=== PATIENT | female | born 1940 | race Caucasian/White ===

== ENCOUNTER → 2016-10-12 00:01 | Outpatient (CLI) | payer MEDICARE, BC, SELFPAY ==
--- NOTE | 2016-10-13 | IMM_PTH ---
PATIENT: VIKRAM BUSTILLO [place]: [facility] [place][id number] AGE/SX: 84/F ROOM: RE10/12/[address]: Dr. Luca Lawrence MD : 1940 BED: DIS: SPEC #: [id number] RECD: 10/14/16 11:09 STATUS: VANDANA REMckenzie #: [id number] COLT: 10/13/16 00:[address]: Luca Lawrence DEPT: IMMUNOHISTOCHEMISTRY RECD BY: Billie Vieira ENTERED: 10/14/16 11:10 SP TYPE: IMMUNO OTHR DR: Dr. Leonardo Bear III, MD Tissues: B - Stomach, NOS Procedures: H Pylori (initial) PHYSICIAN & INSTITUTION [place] [id number] SPECIMEN INFORMATION: Tissue Source: B - Gastric biopsy Clinical Info: Anemia, heme-positive stool Specimen Number: [id number] CPT code: 35650 METHODOLOGY: Deparaffinized sections of prefer/formalin-fixed tissue or PAP/DQ stained slides are incubated with monoclonal/polyclonal antibodies/oligonucleotide probes. Localization is made via biotin free immunoperoxidase method. Appropriate controls are performed and reacted as expected. Results on target cell population are indicated in the following table: RESULTS: ANTIBODY / CLONE RESULT Block B H Pylori (polyclonal) negative These tests were developed and their performance characteristics determined by [facility]. They may not have been cleared or approved by the U.S. Food and Drug Administration. The FDA has determined that such clearance or approval is not necessary. INTERPRETATION: B. Gastric biopsy: Negative for Helicobacter pylori organisms. SJ:ricki 10/15/16
--- NOTE | 2016-10-13 | GASB_PTH ---
PATIENT: VIKRAM BUSTILLO LOC: [facility] [place] U#:[id number] AGE/SX: 84/F ROOM: RE10/12/[address]: Dr. Luca Lawrence MD : 1940 BED: DIS: SPEC #: [id number] RECD: 10/13/16 13:32 STATUS: VANDANA YESENIA #: [id number] COLT: 10/13/16 00:[address]: Luca Lawrence DEPT: SURGICAL PATHOLOGY RECD BY: Felton Mesa ENTERED: 10/13/16 14:19 SP TYPE: Gastric Bx OT DR: Dr. Leonardo Bear III, MD Tissues: A - Gastric mucous membrane B - Gastric mucous membrane Procedures: Special Stain Group I Surgery Specimen Level IV GMS Stain (control) HEADER OPERATION: EGD PRE-OP DIAGNOSIS: Anemia, heme-positive stool TISSUE SUBMITTED: A - GE junction biopsy, B - Gastric biopsy MICROSCOPIC DIAGNOSIS A. GE junction, biopsy: Fragments of squamous mucosa with focal ulceration, associated acute inflammation and fibrinopurulent exudation. Focal changes suggestive of viral cytopathic effects. Special stain for fungi is negative for organisms; matched control is appropriate. B. Gastric biopsy: Mild gastritis and mucosal congestion. SJ:ricki 10/14/16 COMMENT B. The results of immunohistochemistry for Helicobacter pylori will be reported separately ([id number]). Correlation with clinical, endoscopic findings and appropriate follow up are necessary. MICROSCOPIC DESCRIPTION Slides are reviewed. B. The specimen shows fragments of gastric mucosa with chronic inflammatory cell infiltrates in the lamina propria consisting of lymphocytes and plasma cells, consistent with mild chronic gastritis. Focal mucosal congestion is also noted. GROSS DESCRIPTION A - Received in fixative is one container labeled with the patient's name and designated GE junction biopsy. The specimen consists of multiple irregular fragments of light mccain soft tissue that in aggregate measure 0.5 x 0.5 x 0.1 cm. The specimen is totally submitted in one cassette. B - Received in fixative is one container labeled with the patient's name and designated gastric biopsy. The specimen consists of one irregular fragment of light mccain soft tissue that measures 0.3 x 0.2 x 0.1 cm. The specimen is totally submitted in one cassette. / LARA:ricki 10/13/16 TC:2 CPT: 34090 x2, 40161
[2016-10-13 10:53] VITALS: BP 164/46; PULSE 52; RESP 16; TEMP 36.3; O2SAT 98; BMI 27.2
[2016-10-13 12:01] VITALS: BP 164/46; BP 189/85; PULSE 52; RESP 20; TEMP 37.1; O2SAT 99
[2016-10-13 12:05] VITALS: BP 164/46; BP 186/51; PULSE 53; RESP 18; O2SAT 99
[2016-10-13 12:10] VITALS: BP 164/46; BP 193/45; PULSE 52; RESP 18; O2SAT 100
[2016-10-13 12:20] VITALS: BP 164/46; BP 190/46; PULSE 53; RESP 18; TEMP 36.5; O2SAT 99
[2016-10-13 16:16] LABS: Bedside Glucose 98 mg/dL (70-110)
--- OUTSIDE RECORDS SUMMARY | 2017-07-26 19:05 | XMS RPT_ITS | Clinical Summary ---
:1940 Author Organization [facility]ly [facility] Address [address] [place] [address] [place] [address] Phone Care Team Providers Name Role Phone WSANurse Unavailable Unavailable Conditions or Problems No information available. Medications No information available. Medications Administered No information available. Allergies, Adverse Reactions, Alerts No information available. Results Date Name Value Unit Range Flag Description Lab Report: Bedside Glucose GLUCOSEPOC 162 mg/dL 70-110 H glucose, point of care Plan of Care No information available. Procedures No information available. Vital Signs No information available.
--- OUTSIDE RECORDS SUMMARY | 2017-07-26 19:05 | XMS RPT_ITS | Clinical Summary ---
:1940 Author Organization [facility] Address [address] [place] [address] [place] [address] Phone Care Team Providers Name Role Phone WSANurse Unavailable Unavailable Conditions or Problems No information available. Medications No information available. Medications Administered No information available. Allergies, Adverse Reactions, Alerts No information available. Results Date Name Value Unit Range Flag Description Lab Report: CBC W/Diff, Automated LYMPHCT AUTO 1.43 X10 3/UL 10*3/mm3 0.83-4.51 lymphocyte count, blood, automated ANC 3.5 X10 3/UL 10*3/mm3 2.0-7.7 neutrophil count, blood IMM GRANU % 0.200 % 0.0-0.9 immature granulocytes, percentage of total cells, blood BASOPHIL % 1.7 % 0-1 H basophils as percent of blood leukocytes EOSINOPHIL % 8.7 % 0-5 H eosinophils as percent of blood leukocytes MONOCYTE % 7.7 % 0-10 monocytes as percent of blood leukocytes LYMPHS % 23.9 % 19-41 lymphocytes as percent of blood leukocytes PMN % 57.8 % 47-70 neutrophils as percent of blood leukocytes MPV 11.0 fL 6.2-12.0 mean platelet volume PLATELETS 182 10*3/mm3 150-450 platelet count RDW-SD 50.0 fL 35.1-43.9 H red blood cell distribution width, size density RDW 15.3 % 11.6-14.6 H red blood cell distribution width MCHC RBC 32.7 G/GL g/dL 32-36 mean corpuscular hemoglobin concentration, RBC MCH 30.4 pg 27.0-32.0 mean corpuscular hemoglobin, RBC MCV 92.7 fL 81-99 mean corpuscular volume, RBC HCT 34.2 % 37-47 L hematocrit, blood HGB 11.2 g/dL 12.0-15.0 L hemoglobin, blood RBC M/UL 3.69 10*6/uL 4.2-5.4 L red blood count WBC BLOOD 6.0 10*9/L 4.4-11.0 leukocyte (white blood cells) count, blood Lab Report: BNP,B-Type NATRIURETIC PEPTIDE BNP PG/ML 668.6 pg/mL 0-100 H B-type natriuretic peptide Lab Report: Comprehensive Metabolic Profil ANION GAP 6 5-15 anion gap, serum CO2 24.0 mmol/L 21.0-32.0 carbon dioxide, venous blood CHLORIDE 104 mmol/L 98-107 chloride, serum POTASSIUM 4.7 mmol/L 3.5-5.1 potassium, serum SODIUM 134 mmol/L 136-145 L sodium, serum BILI TOTAL 0.50 mg/dL 0.20-1.00 bilirubin, serum, total SGPT (ALT) 24 U/L 12-78 alanine aminotransferase (SGPT), serum ALK PHOS 181 U/L 45-117 H alkaline phosphatase, serum SGOT (AST) 21 U/L 15-37 aspartate aminotransferase (SGOT), serum CALCIUM 8.5 mg/dL 8.5-10.1 calcium, serum A/G RATIO 0.5 RATIO 0.9-2.4 L albumin/globulin ratio, serum GLOBULIN TOT 3.4 g/dL 2.3-3.5 globulins, serum, total ALBUMIN 1.8 g/dL 3.4-5.0 L albumin, serum PROTEIN, TOT 5.2 g/dL 6.4-8.2 L protein, total, serum BUN/CREAT 31.4 RATIO 10-20 H urea nitrogen/creatinine ratio, serum CCVCREABSA 32.08 mL/min calculated corrected value of creatinine clearance with body surface area GFRAA 57 mL/min >60 L Glomerular Filtration rate GFR EST 47 mL/min >60 L estimated glomerular filtration rate CREATININE 1.18 mg/dL 0.55-1.02 H creatinine, serum BUN 37 mg/dL 7-18 H urea nitrogen, blood GLUCOSE SER 141 mg/dL 70-110 H blood glucose Lab Report: Bedside Glucose GLUCOSEPOC 130 mg/dL 70-110 H glucose, point of care Plan of Care No information available. Procedures No information available. Vital Signs No information available.
--- OUTSIDE RECORDS SUMMARY | 2017-07-26 19:05 | XMS RPT_ITS | Clinical Summary ---
:1940 Author Organization [facility] Address [address] [place] [address] [place] [address] Phone Care Team Providers Name Role Phone [...]
== END | disposition skilled nursing facility (03) ==
PROVIDERS: Family Provider Family Medicine; PCP Family Medicine; Visit Provider Surgery
CPT/HCPCS: 43239; 45378; 82962; 88305; 88312; 88342; J7120

== ENCOUNTER 2019-11-02 15:50 | Emergency (ER) | payer MEDICARE, SELFPAY ==
[2019-11-02 15:50] VITALS: BP 155/58; PULSE 81; RESP 16; TEMP 37.1; O2SAT 97; BMI 22.2
--- NOTE | 2019-11-02 16:03 | ED.VIS.INJ ---
History of Present Illness Chief Complaint: Fall Informant: Patient, Family Onset: Today Mechanism/Context: Blunt Injury, Fall Quality of Pain: Aching Current Severity: /10 Maximum Severity: 8/10 Worsened by: Examination of wound Relieved by: Nothing Associated Symptoms: Weakness - Chronic, Inability to ambulate - Had difficulty ambulating for the past 3 years.. Negative for: Parasthesias, Loss of consciousness, Amnesia Narrative: Patient is a 78-year-old woman who was being assisted to the commode. She slept. She and her caregiver fell over the walker. She sustained a large laceration anterior mid left leg. Tetanus is uncertain. Will contact her PCP to determine when she received her last tetanus shot. She is not able to ambulate without assistance. She not able to transferred with out assistance. He denies any hip, knee, ankle or foot pain. 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 Status: Acute (2) History of bilateral knee replacement Status: Acute (3) History of esophagogastroduodenoscopy (EGD) Status: Acute Comment: 10/13/2016, 10/03/2009, 04/09/2013 (4) Hx of cataract surgery Status: Acute Comment: Left eye ( complex) 12/2012 (5) Hx of colonoscopy Status: Acute Comment: 10/13/2016, 10/03/2009, 04/09/2013, 01/03/2008, 07/15/2007 (6) Allergic rhinitis Status: Chronic (7) Anemia Status: Chronic Comment: acute on chronic anemia (8) Asthma Status: Chronic (9) Chronic renal failure, stage 3 (moderate) Status: Chronic (10) HLD (hyperlipidemia) Status: Chronic (11) Seizure disorder Status: Chronic Past Medical History - Allergies and Home Meds Allergies/Adverse Reactions: Allergies almond oil Allergy (Verified 11/02/19 15:53) Mark Primary Care Physician: Leonardo Bear III, MD [Primary Care Provider] - Prior records reviewed: Yes Surgical History: - - R hip fracture repair, Back Fusion, Endoscopies, BL TKR. Lives: With Family Smoking Status: Never smoker Alcohol: None Drugs: None - Family History Maternal Family History: Family History (Last Updated 05/25/18 @ 15:47 by Madai Kenyon) Father Myocardial infarction CVA (cerebral vascular accident) Diabetes Mother Hypertension Family History: Reports: No pertinent history Paternal Family History: Family History (Last Updated 08/26/17 @ 15:47 by Madai Kenyon) Father Myocardial infarction CVA (cerebral vascular accident) Diabetes Mother Hypertension Family History: Reports: No pertinent history Review of Systems General: Denies: Fever, Malaise Eyes: Denies: Visual changes - bilaterally, Blurred Vision - bilaterally ENT: Denies: Bilateral ear pain Cardiovascular: Denies: Chest pain Respiratory: Denies: Dyspnea Gastrointestinal: Denies: Abdominal pain, Nausea, Vomiting Musculoskeletal: Reports: Extremity Pain. Denies: Myalgias, Arthralgias, Neck pain, Back pain Skin: Reports: Wounds. Denies: Rash Neurological: Reports: Weakness. Denies: Headache Hematologic: Reports: Easy bruising - Is on Plavix. She is not on an anticoagulant.. Denies: Easy bleeding Physical Exam Vital Signs/Narrative: Vital Signs Temp Pulse Resp BP Pulse Ox 11/02/19 15:50 98.7 F 81 16 155/58 H 97 Inital Vital Signs reviewed: Yes General: Well nourished, Well developed Head: Normocephalic, Atraumatic Eyes: Perrl, EOMI. Negative for: Pale conjunctiva ENT: TM's clear, No hemotympanum or drainage, No trauma. Negative for: Hemotympanum, Otorrhea, Nasal trauma, Nasal septal hematoma, - Neck: Nontender, Full ROM Cardiovascular: Regular rate, Regular rhythm, No murmurs, Normal S1, Normal S2 Respiratory: No distress, CTA bilaterally Abdomen: - - There is no pain palpation of the pelvis. There is no pain the patient over the greater trochanteric region. Back: Nontender Extremeties: There is a large gaping flap-like laceration anterior mid left leg. The laceration is down to the fascia. There is no laceration through the fascia or involvement of the muscle. Skin: Pallor, Trauma Neurological: Alert, Oriented x3, Cranial nerves II-XII grossly intact. Negative for: Normal Strength, Normal Sensation, Normal DTR, Normal Gait Psychological: Normal affect Diagnostic/Tx/Re-eval - Medical Decision Making Patient sustained blunt trauma with laceration to the left anterior leg. This will require repair. Please read laceration/procedure note. Laceration No standard instances Length: 7.48 in Depth: Fascia Irrigated (ml): 250 Number of Sutures/[place]: 18 Stitch Description: Ethilon, Vertical, 4-0 ED Disposition - Plan for ED Patient: Disposition: Home or Assisted Living Diagnosis: Laceration of left lower leg Instructions: ED Laceration All Closures Referrals: Leonardo Bear III, MD [Primary Care Provider] - 10-14 Days suture removal Additional Instructions: Clean wound with peroxide on a Q-tip 3 times a day then apply bacitracin ointment. Keep wound clean and dry. Stitches out in 14 days
--- NOTE | 2019-11-02 16:22 | ED.RN ---
THIS NURSE CONTACTED DR HERNANDEZ OFFICE TO DETERMINE TETANUS STATUS. THE NURSE IN THE DOCTOR OFFICE DID NOT SEE ANY RECORD OF TETANUS FOR THE PAST 7 YEARS
[2019-11-02] MEDS: Diphth,Pertuss(Acell),Tet Vac 0.5 ML Vial IM (17:00)
[2019-11-02 17:09] VITALS: PULSE 78; RESP 16; O2SAT 99
== END 2019-11-02 17:42 | disposition home or self-care (01) ==
PROVIDERS: Emergency Provider Emergency Medicine; PCP Family Medicine
DX: S81.812A Laceration without foreign body, left lower leg, initial encounter (principal); W01.0XXA Fall on same level from slipping, tripping and stumbling without subsequent striking against object, initial encounter; Y93.89 Activity, other specified; Y92.89 Other specified places as the place of occurrence of the external cause; Y99.9 Unspecified external cause status; E78.5 Hyperlipidemia, unspecified; N18.3 Chronic kidney disease, stage 3 (moderate); G40.909 Epilepsy, unspecified, not intractable, without status epilepticus; Z82.3 Family history of stroke; Z82.49 Family history of ischemic heart disease and other diseases of the circulatory system; Z23 Encounter for immunization; I69.351 Hemiplegia and hemiparesis following cerebral infarction affecting right dominant side; Z96.653 Presence of artificial knee joint, bilateral; Z98.49 Cataract extraction status, unspecified eye; J30.9 Allergic rhinitis, unspecified
CPT/HCPCS: 12004; 90471; 90715; 99284

== ENCOUNTER 2020-05-02 14:34 | Outpatient (RCR) | payer MEDICARE, SELFPAY | END 2020-05-02 23:59 | LOC: IMMUN 14:34 | PROVIDERS: PCP Family Medicine; Referring Provider Family Medicine; Visit Provider Family Medicine | DX: Z23 Encounter for immunization (principal) | CPT/HCPCS: 0011A; 0012A; 91301 ==

== ENCOUNTER 2020-06-10 09:20 | Inpatient (IN) | payer MEDICARE, SELFPAY ==
[2020-06-10] VITALS (9 sets, daily range): BP systolic 130–151; BP diastolic 48–64; PULSE 73–95; RESP 16–21; TEMP 35.1–36.7; O2SAT 96–99; BMI 23.5; BMI 22.1
--- NOTE | 2020-06-10 09:39 | RAD_ITS ---
STUDY: X-RAY CHEST REASON FOR EXAM: Female, 79 years old. sob TECHNIQUE: Single AP portable view of the chest. COMPARISON: None. FINDINGS: The lungs are clear and expanded. There is no demonstrated pleural abnormality. There is mild cardiac enlargement. Normal mediastinum and irma. Normal visualized pulmonary arteries. Normal visualized aortic arch and descending thoracic aorta. There are diffuse degenerative changes of the visualized thoracic spine. Normal visualized ribs, clavicles, and shoulders. There is no demonstrated abnormality of the visualized soft tissue structures of the upper abdomen. RAD/Chest 1 View (Portable) IMPRESSION: Degenerative changes, as described above. No demonstrated acute cardiopulmonary process. Electronically Signed: Paul Cabrera MD at 11:28 EST Tel , Service support ,
--- NOTE | 2020-06-10 09:39 | EKG12_ITS ---
Test Reason : Blood Pressure : / mmHG Vent. Rate : 087 BPM Atrial Rate : 087 BPM P-R Int : 192 ms QRS Dur : 134 ms QT Int : 378 ms P-R-T Axes : 058 -35 087 degrees QTc Int : 454 ms Normal sinus rhythm Left axis deviation Non-specific intra-ventricular conduction block Abnormal ECG Confirmed by AISHWARYA COBURN, HELENA ([id number]), newspaper copy editor SAIDA NINO ([id number]) on 06/16/2020 10:23:27 A M Referred By: DANIELLE Confirmed By:JOSE NEFF MD
--- NOTE | 2020-06-10 09:51 | RAD_ITS ---
STUDY: X-RAY - RIGHT FOOT CLINICAL: Female, 79 years old. infection TECHNIQUE: 3 view(s) of the foot. COMPARISON: None. FINDINGS: Normal talus, calcaneus, and tarsal bones. Normal talus, calcaneus, and tarsal bones. Normal visualized subtalar, talonavicular, calcaneocuboid, tarsal articulations. Mild degenerative changes are noted in the tarsometatarsal articulations. There is demineralization of the metatarsi. Normal metatarsophalangeal joint of the great toe. Normal tibial and fibular sesamoid bones. Normal interphalangeal joint of the great toe. Normal phalanges of the great toe. Normal second through fifth metatarsophalangeal joints. Normal interphalangeal joints and phalanges of the lesser toes. There is non-specific soft tissue swelling of the foot. RAD/Foot min 3 Views IMPRESSION: Osteoporosis. Mild degenerative changes are noted in the tarsometatarsal articulations. There is no definite bone erosion to suggest osteomyelitis. Electronically Signed: Paul Cabrera MD at 11:31 EST Tel , Service support ,
--- NOTE | 2020-06-10 09:51 | RAD_ITS ---
STUDY: X-RAY - RIGHT TIBIA AND FIBULA REASON FOR EXAM: Female, 79 years old. wound TECHNIQUE: 2 view(s) of the tibia and fibula were obtained. COMPARISON: None. FINDINGS: There is demineralization of the tibia. There is demineralization of the fibula. There is a right knee arthroplasty in good alignment. The soft tissue structures are unremarkable. RAD/Tibia & Fibula 2 Views IMPRESSION: Osteopenia of the tibia and fibula. There is no acute bone abnormality. Electronically Signed: Paul Cabrera MD at 11:35 EST Tel , Service support ,
--- NOTE | 2020-06-10 09:52 | ED.VISSUMM ---
- ER Visit Summary Date of Service: 06/10/20 Chief Complaint: Shortness of breath, weakness, lower extremity redness History of Present Illness: The patient is a 79 F presenting per EMS with shortness of breath. Patient is a poor historian. According to she has an appointment coming up this week with her primary care physician. He states she has not been to see a doctor in over a year because of Covid. He has been wrapping her legs and they have been progressively worsening and seeping. She has a wound to her right lower extremity. Patient states she felt short of breath this morning. She complains of mild chest pain. She complains of body aches. She denies fever. She has had Covid vaccine x2. Physical Examination: Vitals are stable. Patient is afebrile. Alert no acute distress. HEENT exam is unremarkable. Neck is supple. Lungs are clear and equal bilaterally. Heart is regular rate and rhythm. Systolic murmur Abdomen is soft nontender nondistended. Extremities bilateral lower extremity erythema and drainage, wound right anterior lower extremity. Skin is warm and dry. Remainder of exam is unremarkable. Emergency Department Course and Treatment: EKG is sinus rhythm rate of 87, similar to previous. CBC shows white count 19.5, hemoglobin 7.3. Chemistries show sodium 129, glucose 158, BUN 112, creatinine 1.59. Troponin is negative. CRP 227. ESR 90. She has black stool that is guaiac negative. states her stool is always black secondary to iron supplements. Bilateral foot x-ray read by myself and radiology shows osteoporosis. Mild degenerative changes are noted in the tarsometatarsal articulations. There is no definite bone erosion to suggest osteomyelitis. Right tib-fib x-ray read by myself and radiology shows osteopenia of the tibia and fibula. There is no acute bone abnormality. Chest x-ray read by myself and radiology shows degenerative changes. No demonstrated acute cardiopulmonary process. Blood cultures were sent. Patient was given vancomycin IV. Discussed with hospitalist for admission. Disposition: Admission Impression: Bilateral lower extremity cellulitis, anemia, leukocytosis This note was generated with [employer] dictation software. It may contain incorrect words, spelling, and punctuation that were not noted in review of the chart prior to signing ED Disposition - Plan for ED Patient: Referrals: Leonardo Bear III, MD [Primary Care Provider] -
[2020-06-10 10:01] LABS: Absolute Lymphocyte Count 0.86 X10^3/uL (0.83-4.51); Absolute Neutrophil Count 17.9 X10^3/uL (2.0-7.7); Basophil# 0.03 X10^3/uL; Basophil% 0.2 % (0-1); Eosinophil# 0.13 X10^3/uL; Eosinophils% 0.7 % (0-5); Hematocrit 23.9 % (37-47); Hemoglobin 7.3 g/dL (12.0-15.0); Lymphocyte # 0.86 X10^3/ul (4.0); Lymphocyte % 4.4 % (19-41); Mean Corp Hgb Conc 30.5 g/dL (32-36); Mean Corpuscular Hgb 25.1 pg (27.0-32.0); Mean Corpuscular Volume 82.1 fL (81-99); Mean Platelet Vol. 9.3 fl (6.2-12.0); Monocyte# 0.41 X10^3/uL; Monocyte% 2.1 % (0-10); NRBC Flagged by Analyzer 0 % (0-5); Neutrophil % 91.8 % (47-70); POSITIVE MORPHOLOGY YES; Platelet Count 379 K/mm3 (150-450); RBC Distribution Width SD 64.3 fl (35.1-43.9); Red Blood Count 2.91 M/mm3 (4.2-5.4); White Blood Count 19.5 K/mm3 (4.4-11.0)
[2020-06-10 10:09] LABS: Differential Indicated SCAN CRITERIA MET
[2020-06-10 10:22] LABS: ALB/GLOB Ratio 0.4 RATIO (0.9-2.4); AST(SGOT) 31 U/L (15-37); Alanine Aminotransfer ALT/SGPT 49 U/L (13-56); Albumin, Serum 2.1 g/dL (3.2-5.0); Alkaline Phosphatase 173 U/L (45-117); Anion Gap 8 (5-15); BUN 112 mg/dL (7-18); BUN/Creat Ratio 70.4 RATIO (10-20); Calcium,Total 9.4 mg/dL (8.5-10.1); Chloride 103 mmol/L (98-107); Creatinine, Serum 1.59 mg/dL (0.55-1.02); EST Glomerular Filtration Rate 33 mL/min (>60); Est Glom Filt Rate - Afr Amer 40 mL/min (>60); Estimated Creatinine Clearance 20.27 ml/min; Globulin 5.1 g/dL (2.2-4.2); Glucose 158 mg/dL (74-106); Protein, Total 7.2 g/dL (6.4-8.2); Sodium Level 129 mmol/L (136-145)
--- NOTE | 2020-06-10 10:53 | RAD_ITS ---
STUDY: X-RAY - LEFT FOOT CLINICAL: Female, 79 years old. INFECTION TECHNIQUE: 3 view(s) of the foot. COMPARISON: None. FINDINGS: Normal talus, calcaneus, and tarsal bones. Normal visualized subtalar, talonavicular, calcaneocuboid, tarsal articulations. Mild degenerative changes are noted in the tarsometatarsal articulations. Normal metatarsi. Normal metatarsophalangeal joint of the great toe. Normal tibial and fibular sesamoid bones. Normal interphalangeal joint of the great toe. Normal phalanges of the great toe. Normal second through fifth metatarsophalangeal joints. Normal interphalangeal joints and phalanges of the lesser toes. The soft tissue structures are unremarkable. RAD/Foot min 3 Views IMPRESSION: Osteoporosis. Mild degenerative changes are noted in the tarsometatarsal articulations. There is no definite bone erosion to suggest osteomyelitis. Electronically Signed: Paul Cabrera MD at 11:25 EST Tel , Service support ,
[2020-06-10 11:27] LABS: Erythrocyte Sedimentation Rate 90 mm/hr (0-30)
[2020-06-10 11:41] LABS: Anisocytosis 1+; Differential Comment SCANNED
[2020-06-10 11:43] LABS: Hypochromasia 1+
--- NOTE | 2020-06-10 11:53 | HP.PCM_ITS ---
History of Present Illness Date of Admission: 06/10/20 Chief Complaint: weakness, lethargy The patient is a 79 year old F witha PMH as outlined who was admitted via the ED with a complaint of weakness and lethargy. She hadnt been to the doctor for a year due to COVID. She felt like her throat was hurting, as well as short of breath. said she had been getting more frail and weak, and on day of admission, she said she couldnt cope, so he brought her in to the ED. did have a history of lower extremity ulcerations and he said that she bumped into something with her right leg a few weeks ago when had had an ulcer there which have not been healing. He had been doing his best to address her lower ex tremity wounds in the house. Her legs had a greenish discharge from both legs,. said her stools are always dark because she is on iron. She has received the both covid vaccinations. Vitals in the ED showed temperature of 97.6F, BP of 139/50, MO of 85 and RR of 17. Chemistry showed sodium of 129. bicarb of 18. BUN of 112, Cr of 1.59, initial troponin was negative; CBC showed wbc of 19.5, Hb of 7.3, platelets of 379. CXR showed no acute cardiopulmonary process, and xray of the tibia and fibula showed osteopenia with no acute bone abnormality. Foot xray showed mild degenerative changes noted in the tarsometatarsal articulations with no definite bony erosion to suggest osteomyelitis. She is being admitted to be managed for cellulitis of the LEs as well as debility. [] Past Medical History Past Medical History (Chronic Problems): Chronic Problems (Last Reviewed 06/10/20 @ 14:30 by Yessenia PRECIADO PA-C) HTN (hypertension) (Chronic) Asthma (Chronic) Diet-controlled diabetes mellitus (Chronic) Anemia (Chronic) acute on chronic anemia CVA (cerebral vascular accident) (Chronic) HLD (hyperlipidemia) (Chronic) Chronic renal failure, stage 3 (moderate) (Chronic) Hypoalbuminemia (Chronic) Rectal abscess (Chronic) Allergic rhinitis (Chronic) GERD (gastroesophageal reflux disease) (Chronic) Seizure disorder (Chronic) Chronic kidney disease (Chronic) Medical History: Medical History (Last Reviewed 06/10/20 @ 14:30 by YUSUF FosterC) Hx of flexible sigmoidoscopy (Acute) Z98.890 Dilantin toxicity (Acute) T42.0X1A Femur fracture (Acute) S72.90XA right HTN (hypertension) (Chronic) I10 Asthma (Chronic) J45.909 Diet-controlled diabetes mellitus (Chronic) E11.9 Anemia (Chronic) D64.9 acute on chronic anemia CVA (cerebral vascular accident) (Chronic) I63.9 HLD (hyperlipidemia) (Chronic) E78.5 Hyponatremia (Acute) E87.1 Chronic renal failure, stage 3 (moderate) (Chronic) N18.3 Hypoalbuminemia (Chronic) E88.09 Elevated parathyroid hormone (Acute) E34.9 Fall (Acute) W19.XXXA Closed right hip fracture (Acute) S72.001A Rectal abscess (Chronic) Allergic rhinitis (Chronic) J30.9 GERD (gastroesophageal reflux disease) (Chronic) K21.9 Seizure disorder (Chronic) G40.909 Chronic kidney disease (Chronic) N18.9 Allergies almond oil Allergy (Verified 11/02/19 15:53) Hives Home Medications: Ambulatory Orders Medication Instructions Recorded Amlodipine [Norvasc] 1 tab PO DAILY 09/26/16 Fluticasone Propionate [Flovent 1 puff IH BID 09/26/16 Hfa] Losartan Potassium 1 tab PO BID 09/26/16 Simvastatin [Zocor] 1 tab PO QHS 09/26/16 Calcium (Elemental) [Os-Denny 500] 500 mg PO BIDCM 01/03/17 Cholecalciferol (VIT D3) [Vitamin 1,000 unit PO DAILYCM 01/03/17 D3] Clonidine HCl [Catapres] 0.2 mg PO BID 01/03/17 Clopidogrel Bisulfate [Plavix] 75 mg PO DAILY 01/03/17 hydrALAZINE [Apresoline] 100 mg PO TID 01/03/17 Phenytoin Na [Dilantin] 200 mg PO DAILYCM #30 01/05/17 Acetaminophen [Tylenol] 1,000 mg PO Q8 06/10/20 Hydrochlorothiazide [Hctz] 25 mg PO DAILY 06/10/20 Iron Polysaccharide Complex 150 mg PO BIDCM 06/10/20 [Ferrex 150] Mometasone Furoate 1 applic TP DAILY 06/10/20 Pantoprazole Sodium [Protonix] 20 mg PO DAILY 06/10/20 Polyethylene Glycol 3350 [Miralax] 17 gm PO DAILY 06/10/20 Sucralfate [Carafate] 1 gm PO TID 06/10/20 Surgical History: Surgical History (Last Reviewed 06/10/20 @ 14:30 by Yessenia PRECIADO, PA-C) History of surgical removal of skin lesion (Acute) Z98.890, Z87.2 03/16/2013 Hx of knee surgery (Acute) Z98.890 Right femur- 09/26/2016 History of bilateral knee replacement (Acute) Z96.653 History of back surgery (Acute) Z98.890 2005 History of rectal abscess (Acute) Z87.19 X3 Hx of biopsy (Acute) Z98.890 Bilateral of thyroid FNA- 02/13/2014 History of esophagogastroduodenoscopy (EGD) (Acute) Z98.890 10/13/2016, 10/03/2009, 04/09/2013 Hx of colonoscopy (Acute) Z98.890 10/13/2016, 10/03/2009, 04/09/2013, 01/03/2008, 07/15/2007 Hx of cataract surgery (Acute) Z98.49 Left eye ( complex) 12/2012 Surgical History: - - R hip fracture repair, Back Fusion, Endoscopies, BL TKR. Psychiatric History: No pertinent psych hx [employer] History: No pertinent [employer] history Smoking Status: Never smoker - *Family History Maternal Family History: Family History (Last Reviewed 06/10/20 @ 14:31 by Yessenia PRECIADO PA-C) Father Myocardial infarction CVA (cerebral vascular accident) Diabetes Mother Hypertension History Items: No pertinent history Paternal Family History: Family History (Last Reviewed 06/10/20 @ 14:31 by Yessenia PRECIADO PA-C) Father Myocardial infarction CVA (cerebral vascular accident) Diabetes Mother Hypertension History Items: No pertinent history Review of Systems Constitutional: Denies: Chills, Fever, Weight Change HEENT: Denies: Head Aches, Sinus Congestion, Sinus Drainage Cardiovascular: Denies: Chest Pain, Chest Pressure, Chest Tightness, Heaviness, Light Headedness, Orthopnea, Palpitations Respiratory: Denies: Cough, Shortness of Breath, Shortness of breath at rest, Sputum production Gastrointestinal: Denies: Abdominal Pain, Nausea, Vomiting Genitourinary: Denies: Dysuria Musculoskeletal: Denies: Arm Pain Skin: Reports: Skin Changes, Wounds Neurological: Denies: Numbness, Tingling, Focal weakness Psychiatric: Denies: Anxiety, Depression, Homicidal Ideations, Suicidal Ideations Hematologic/ Lymphatic: Denies: Easy Bruising, Easy Bleeding VTE Information - Inpt Only VTE Present on Admission: No VTE Pharm Prophylaxis ordered?: Yes Patient Problems: Active and Suspected Problems (Last Reviewed 06/10/20 @ 14:30 by Yessenia PRECIADO, PA-C) Acute anemia (Acute) GI bleed (Acute) - Physical Exam Vitals/I&O's: Vital Signs Temp Pulse Resp BP Pulse Ox 97.6 F L 85 17 139/50 H 99 06/10/20 09:26 06/10/20 09:26 06/10/20 09:26 06/10/20 09:26 06/10/20 09:26 Oxygen Delivery Method Room Air Weight: 120 lb 5.958 oz Body Mass Index (BMI) 23.5 Finger Stick Blood Glucose 167 General: Alert, Lethargic HEENT: Atraumatic, PERRLA, EOMI, Normocephalic Oral: Dry Mucosa Neck: Supple, No JVD, Negative Carotid Bruits Lungs: Clear to auscultation, Normal air movement, No rhonchi, No wheeze, No rales Cardiovascular: Regular rate, Regular Rhythm, Normal S1, Normal S2, No murmurs Abdomen: Bowel Sounds Present, Soft, Non Tender Extremities: - - 1+ edema of lower extremities Skin: Ulcer/ Wound - superficial ulcerations of both LEs on the shins, with scant discharge. Calves are tender to touch Lymphatic: No Cervical, Supraclavicular, or Inguinal Adenopathy Neurological: Cranial nerves II-XII grossly intact, Neuro grossly intact, Motor Exam 5/5 strength throughout Psych/Mental Status: Flat Affect Microbiology Past 72 Hours 06/10/20 10:50 Stool Stool Occult Blood (KINZA) - Final Laboratory Results 06/10/20 09:30: WBC 19.5 H, RBC 2.91 L, Hgb 7.3 L, Hct 23.9 L, MCV 82.1, MCH 25.1 L, MCHC 30.5 L, RDW Std Deviation 64.3 H, RDW Coeff of Ceferino 22.0 H, Plt Count 379, MPV 9.3, Immature Gran % (Auto) 0.800, Neut % (Auto) 91.8 H, Lymph % (Auto) 4.4 L, Hinds % (Auto) 2.1, Eos % (Auto) 0.7, Baso % (Auto) 0.2, Absolute Neuts (auto) 17.9 H, Absolute Lymphs (auto) 0.86, Nucleated RBC % 0, Differential Comment SCANNED, Hypochromasia 1+, Anisocytosis 1+, ESR 90 H 06/10/20 09:30: Sodium 129 L, Potassium 5.0, Chloride 103, Carbon Dioxide 18.0 L , Anion Gap 8, BUN 112 H*, Creatinine 1.59 H, Estim Creat Clear Calc 20.27, Est GFR (MDRD) Af Amer 40 L, Est GFR (MDRD) Non-Af 33 L, BUN/Creatinine Ratio 70.4 H , Glucose 158 H, Calcium 9.4, Total Bilirubin 0.20, AST 31, ALT 49, Alkaline Phosphatase 173 H, Troponin I < 0.015, C-React Prot Ext Range 227.00 H, Total Protein 7.2, Albumin 2.1 L, Globulin 5.1 H, Albumin/Globulin Ratio 0.4 L Diagnostic Data Chest X-Ray 06/10/20 09:39 IMPRESSION: Degenerative changes, as described above. No demonstrated acute cardiopulmonary process. Electronically Signed: Paul Cabrera MD at 11:28 EST Tel , Service support , Tibia/Fibula X-Ray 06/10/20 09:51 IMPRESSION: Osteopenia of the tibia and fibula. There is no acute bone abnormality. Electronically Signed: Paul Cabrera MD at 11:35 EST Tel , Service support , Foot X-Ray 06/10/20 10:53 IMPRESSION: Osteoporosis. Mild degenerative changes are noted in the tarsometatarsal articulations. There is no definite bone erosion to suggest osteomyelitis. Electronically Signed: Paul Cabrera MD at 11:25 EST Tel , Service support , Assessment/Plan All Active Problems (Last Reviewed 06/10/20 @ 14:30 by Yessenia PRECIADO, PA-C) Acute anemia (Acute) GI bleed (Acute) Hx of flexible sigmoidoscopy (Acute) History of surgical removal of skin lesion (Acute) Hx of knee surgery (Acute) History of bilateral knee replacement (Acute) History of back surgery (Acute) History of rectal abscess (Acute) Hx of biopsy (Acute) History of esophagogastroduodenoscopy (EGD) (Acute) Hx of colonoscopy (Acute) Hx of cataract surgery (Acute) Hemiparesis affecting dominant side as late effect of cerebrovascular accident (Acute) Dilantin toxicity (Acute) Femur fracture (Acute) Hyponatremia (Acute) Elevated parathyroid hormone (Acute) Fall (Acute) Closed right hip fracture (Acute) History of rectal abscess (Resolved) 79 y/o admitted with a complaint of weakness and lethargy #Bilateral lower extremity cellulitis due to leg wounds * [facility] * Hydrate gently with normal saline at 150 cc/h as patient is very dry. * BBC is elevated at 19.5. * Start on IV vancomycin. Get wound cultures and blood cultures. * PT OT consults. Fall precautions. * #Anemia * hemoglobin is 7.3. She is on iron supplements but in her stools have been dark. * Have previous EGD in 2017 which showed dark discoloration in the stomach with concerns for melanosis coli. Duodenum was normal. Colonoscopy had poor bowel prep. * Stool for occult blood is negative but on account of hemoglobin given 7.3 and her past history, will consult general surgery. * On sucralfate. Start on IV pantoprazole 40 mg twice daily. * Check iron panel. * #CKD stage III: * Creatinine is 1.59 though BUN is markedly elevated at 112. * The BUN/creatinine ratio is markedly elevated leading to concerns for upper GI bleed. Will trend creatinine. Patient being hydrated. # #Hypertension: On amlodipine and losartan. #Hyperlipidemia: On statin 2. Diabetes mellitus: On insulin sliding scale. Accu-Cheks AC at bedtime. #History of seizure disorder: On phenytoin #Hyperlipidemia: On statin Prophylaxis: Lovenox CODE STATUS: DNR CCA no intubation * Patient counseled extensively about different types of CODE STATUS including full code, DNR CCA and DNR CCA. Patient elects to be DNRCCA. Total [id number] time17 minutes. Inpatient E&M: 47398 Init Hosp L3 Procedures: 89225 Advncd Care Plan 30 Min
--- NOTE | 2020-06-10 11:53 | NURSING ---
DR ROSALVA SANTOS
--- NOTE | 2020-06-10 12:03 | NURSING ---
MED SURG CELLULITIS KORAM
--- NOTE | 2020-06-10 12:31 | ED.RN ---
this rn assumes care.
--- NOTE | 2020-06-10 14:14 | PCM.CONS.GEN ---
Problem List (1) Acute anemia Status: Acute (2) GI bleed Status: Acute Reason for Consult Date of Consultation: 06/10/20 Reason for Consultation: Acute anemia History of Present Illness: The patient is a 79 year old F who presented with shortness of breath, weakness, and lower extremity weakness. Patient states she is having difficulty with swallowing. She notes pain with swallowing. Patient is a poor historian. Her is not with her to provide any history. Patient denies bright red blood per rectum. It appears reading through records she has been having dark stools. She has bilateral lower extremity cellulitis and multiple ulcerations on bilateral lower extremities. Her recent hemoglobin is 7.3 and her previous hemoglobin was from 2017. Patient lives at home with her . Patient's last upper/lower scope was performed by Dr. Lawrence which demonstrated irritation of the esophagus which was potential source of bleeding. Lower endoscopy was unremarkable. It was noted patient had poor colon preparation. This procedure was completed as an inpatient secondary to heme positive stools and anemia. Patient is currently on Plavix. She is unsure why. Past Medical History Past Medical History (Chronic Problems): Chronic Problems (Last Reviewed 06/10/20 @ 14:30 by Yessenia PRECIADO, PA-C) HTN (hypertension) (Chronic) Asthma (Chronic) Diet-controlled diabetes mellitus (Chronic) Anemia (Chronic) acute on chronic anemia CVA (cerebral vascular accident) (Chronic) HLD (hyperlipidemia) (Chronic) Chronic renal failure, stage 3 (moderate) (Chronic) Hypoalbuminemia (Chronic) Rectal abscess (Chronic) Allergic rhinitis (Chronic) GERD (gastroesophageal reflux disease) (Chronic) Seizure disorder (Chronic) Chronic kidney disease (Chronic) Medical History: Medical History (Last Reviewed 06/10/20 @ 14:30 by Yessenia PRECIADO, PA-C) Hx of flexible sigmoidoscopy (Acute) Z98.890 Dilantin toxicity (Acute) T42.0X1A Femur fracture (Acute) S72.90XA right HTN (hypertension) (Chronic) I10 Asthma (Chronic) J45.909 Diet-controlled diabetes mellitus (Chronic) E11.9 Anemia (Chronic) D64.9 acute on chronic anemia CVA (cerebral vascular accident) (Chronic) I63.9 HLD (hyperlipidemia) (Chronic) E78.5 Hyponatremia (Acute) E87.1 Chronic renal failure, stage 3 (moderate) (Chronic) N18.3 Hypoalbuminemia (Chronic) E88.09 Elevated parathyroid hormone (Acute) E34.9 Fall (Acute) W19.XXXA Closed right hip fracture (Acute) S72.001A Rectal abscess (Chronic) Allergic rhinitis (Chronic) J30.9 GERD (gastroesophageal reflux disease) (Chronic) K21.9 Seizure disorder (Chronic) G40.909 Chronic kidney disease (Chronic) N18.9 Allergies almond oil Allergy (Verified 11/02/19 15:53) Hives Home Medications: Ambulatory Orders Medication Instructions Recorded Amlodipine [Norvasc] 1 tab PO DAILY 09/26/16 Fluticasone Propionate [Flovent 1 puff IH BID 09/26/16 Hfa] Losartan Potassium 1 tab PO BID 09/26/16 Simvastatin [Zocor] 1 tab PO QHS 09/26/16 Calcium (Elemental) [Os-Denny 500] 500 mg PO BIDCM 01/03/17 Cholecalciferol (VIT D3) [Vitamin 1,000 unit PO DAILYCM 01/03/17 D3] Clonidine HCl [Catapres] 0.2 mg PO BID 01/03/17 Clopidogrel Bisulfate [Plavix] 75 mg PO DAILY 01/03/17 hydrALAZINE [Apresoline] 100 mg PO TID 01/03/17 Phenytoin Na [Dilantin] 200 mg PO DAILYCM #30 01/05/17 Acetaminophen [Tylenol] 1,000 mg PO Q8 06/10/20 Hydrochlorothiazide [Hctz] 25 mg PO DAILY 06/10/20 Iron Polysaccharide Complex 150 mg PO BIDCM 06/10/20 [Ferrex 150] Mometasone Furoate 1 applic TP DAILY 06/10/20 Pantoprazole Sodium [Protonix] 20 mg PO DAILY 06/10/20 Polyethylene Glycol 3350 [Miralax] 17 gm PO DAILY 06/10/20 Sucralfate [Carafate] 1 gm PO TID 06/10/20 Surgical History: Surgical History (Last Reviewed 06/10/20 @ 14:30 by YUSUF FosterC) History of surgical removal of skin lesion (Acute) Z98.890, Z87.2 03/16/2013 Hx of knee surgery (Acute) Z98.890 Right femur- 09/26/2016 History of bilateral knee replacement (Acute) Z96.653 History of back surgery (Acute) Z98.890 2005 History of rectal abscess (Acute) Z87.19 X3 Hx of biopsy (Acute) Z98.890 Bilateral of thyroid FNA- 02/13/2014 History of esophagogastroduodenoscopy (EGD) (Acute) Z98.890 10/13/2016, 10/03/2009, 04/09/2013 Hx of colonoscopy (Acute) Z98.890 10/13/2016, 10/03/2009, 04/09/2013, 01/03/2008, 07/15/2007 Hx of cataract surgery (Acute) Z98.49 Left eye ( complex) 12/2012 Surgical History: - - R hip fracture repair, Back Fusion, Endoscopies, BL TKR. 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 history Smoking Status: Never smoker - *Family History Maternal Family History: Family History (Last Reviewed 06/10/20 @ 14:31 by Yessenia PRECIADO, PA-C) Father Myocardial infarction CVA (cerebral vascular accident) Diabetes Mother Hypertension History Items: No pertinent history Paternal Family History: Family History (Last Reviewed 06/10/20 @ 14:31 by Yessenia PRECIADO PA-C) Father Myocardial infarction CVA (cerebral vascular accident) Diabetes Mother Hypertension History Items: No pertinent history Review of Systems Constitutional: Reports: Anorexia, Weight Change HEENT: Reports: Difficulty Hearing. Denies: Head Aches, Sinus Congestion, Sinus Drainage Cardiovascular: Denies: Chest Pain, Palpitations Respiratory: Denies: Cough, Shortness of breath at rest, Sputum production Gastrointestinal: Denies: Abdominal Pain, Nausea, Vomiting Genitourinary: Reports: Incontinence Musculoskeletal: Reports: Leg Pain Skin: Reports: Wounds - cellulitis bilateral lower extremities Neurological: Reports: Balance problems Psychiatric: Reports: Anxiety, Depression. Denies: Homicidal Ideations, Suicidal Ideations Hematologic/ Lymphatic: Reports: Anemia, Easy Bruising, Easy Bleeding Patient Problems: Active and Suspected Problems (Last Reviewed 06/10/20 @ 14:30 by Yessenia PRECIADO, PA-C) Acute anemia (Acute) GI bleed (Acute) - Physical Exam Vitals/I&O's: Vital Signs Temp Pulse Resp BP Pulse Ox 95.2 F L 73 18 151/48 H 98 06/10/20 13:33 06/10/20 13:33 06/10/20 13:33 06/10/20 13:33 06/10/20 13:33 Oxygen Delivery Method Nasal Cannula Weight: 113 lb 5.082 oz Body Mass Index (BMI) 22.1 Finger Stick Blood Glucose 167 General: Alert, Cooperative HEENT: Atraumatic, PERRLA, EOMI, Normocephalic Neck: Supple, No JVD, Negative Carotid Bruits Lungs: Clear to auscultation, Normal air movement Cardiovascular: Regular rate, No murmurs Abdomen: Bowel Sounds Present, Soft, Non Tender Extremities: No edema, Capillary Refill Less than 3 Seconds Skin: Ulcer/ Wound - bilateral lower extremities Musculoskeletal: Cachexia, Muscle Wasting Neurological: Neuro grossly intact Psych/Mental Status: Flat Affect Microbiology Past 72 Hours 06/10/20 11:34 Mucosa - Nose SARS-CoV-2 Antigen (Rapid) - Final 06/10/20 10:50 Stool Stool Occult Blood (KINZA) - Final Laboratory Results 06/10/20 09:30: WBC 19.5 H, RBC 2.91 L, Hgb 7.3 L, Hct 23.9 L, MCV 82.1, MCH 25.1 L, MCHC 30.5 L, RDW Std Deviation 64.3 H, RDW Coeff of Ceferino 22.0 H, Plt Count 379, MPV 9.3, Immature Gran % (Auto) 0.800, Neut % (Auto) 91.8 H, Lymph % (Auto) 4.4 L, Gibson % (Auto) 2.1, Eos % (Auto) 0.7, Baso % (Auto) 0.2, Absolute Neuts (auto) 17.9 H, Absolute Lymphs (auto) 0.86, Nucleated RBC % 0, Differential Comment SCANNED, Hypochromasia 1+, Anisocytosis 1+, ESR 90 H 06/10/20 09:30: Sodium 129 L, Potassium 5.0, Chloride 103, Carbon Dioxide 18.0 L, Anion Gap 8, BUN 112 H*, Creatinine 1.59 H, Estim Creat Clear Calc 20.27, Est GFR (MDRD) Af Amer 40 L, Est GFR (MDRD) Non-Af 33 L, BUN/Creatinine Ratio 70.4 H, Glucose 158 H, Calcium 9.4, Total Bilirubin 0.20, AST 31, ALT 49, Alkaline Phosphatase 173 H, Troponin I < 0.015, C-React Prot Ext Range 227.00 H, Total Protein 7.2, Albumin 2.1 L, Globulin 5.1 H, Albumin/Globulin Ratio 0.4 L Current Medications Amlodipine Besylate (Amlodipine 10 Mg Tablet) 10 mg PO DAILY COUNTS INCLUDE 234 BEDS AT THE [facility] Atorvastatin Calcium (Atorvastatin Calcium 10 Mg Tablet) 10 mg PO QHS COUNTS INCLUDE 234 BEDS AT THE [facility] Budesonide (Budesonide Respules 0.5 Mg/2 Ml Ampul.Neb.) 0.5 mg INHALATION Q12H.RT COUNTS INCLUDE 234 BEDS AT THE [facility] Calcium Carbonate (Calcium (Elemental) 500 Mg Tablet) 500 mg PO BIDCM COUNTS INCLUDE 234 BEDS AT THE [facility] Cholecalciferol (Cholecalciferol (Vit D3) 1,000 Unit (25mcg)) 1,000 unit PO DAILYCM COUNTS INCLUDE 234 BEDS AT THE [facility] Clonidine (Clonidine Hcl 0.2 Mg Tablet) 0.2 mg PO BID COUNTS INCLUDE 234 BEDS AT THE [facility] Hydralazine HCl (Hydralazine 50 Mg Tablet) 100 mg PO TID COUNTS INCLUDE 234 BEDS AT THE [facility] Hydrochlorothiazide (Hydrochlorothiazide 25 Mg Tablet) 25 mg PO DAILY COUNTS INCLUDE 234 BEDS AT THE [facility] Sodium Chloride () 1,000 mls @ 150 mls/hr IV .Q6H40M COUNTS INCLUDE 234 BEDS AT THE [facility] Stop: 06/11/20 02:59 Vancomycin IV Pharmacy to Dose (1 ea/ Sodium Chloride) 500 mls @ 250 mls/hr IV X1 PRN; Protocol PRN Reason: Rx to Dose Pantoprazole Sodium 40 mg/ (Sodium Chloride) 110 mls @ 330 mls/hr IV Q12 COUNTS INCLUDE 234 BEDS AT THE [facility] Vancomycin HCl () 500 mg in 100 mls @ 100 mls/hr IV X1 ONE Stop: 06/10/20 15:44 Insulin Human Lispro (Insulin Lispro 100 Unit/Ml Insuln.Pen) 0 unit SC ACHS COUNTS INCLUDE 234 BEDS AT THE [facility]; Protocol Losartan Potassium (Losartan Potassium 50 Mg Tablet) 50 mg PO BID COUNTS INCLUDE 234 BEDS AT THE [facility] Ondansetron HCl (Ondansetron 4 Mg/2 Ml Vial) 4 mg IV Q8H PRN PRN PRN Reason: NAUSEA/VOMITING Phenytoin Sodium ([facility]hen[facility] 100 [facility]aps[facility]) [facility] Polyethylene Glycol (Polyethylene Glycol 3350 Bowel Prep) 0 bottle PO DAILY@1600 COUNTS INCLUDE 234 BEDS AT THE [facility] Stop: 06/11/20 16:01 Polysaccharide Iron Complex (Iron Polysaccharide Complex 150 Mg Capsule) 150 mg PO BID COUNTS INCLUDE 234 BEDS AT THE [facility] Sodium Chloride (0.9% Saline Lock 10 Ml Syringe) 10 - 40 ml IV UD PRN PRN Reason: SALINE FLUSH Assessment/Plan All Active Problems (Last Reviewed 06/10/20 @ 14:30 by Yessenia PRECIADO, PAAlmaC) Acute anemia (Acute) GI bleed (Acute) Hx of flexible sigmoidoscopy (Acute) History of surgical removal of skin lesion (Acute) Hx of knee surgery (Acute) History of bilateral knee replacement (Acute) History of back surgery (Acute) History of rectal abscess (Acute) Hx of biopsy (Acute) History of esophagogastroduodenoscopy (EGD) (Acute) Hx of colonoscopy (Acute) Hx of cataract surgery (Acute) Hemiparesis affecting dominant side as late effect of cerebrovascular accident (Acute) Dilantin toxicity (Acute) Femur fracture (Acute) Hyponatremia (Acute) Elevated parathyroid hormone (Acute) Fall (Acute) Closed right hip fracture (Acute) History of rectal abscess (Resolved) I have been consulted in conjunction with Dr. Brito. He will independently evaluate this patient. Impression: Acute anemia. Dysphagia. Nausea. ?Melena. Unknown etiology Plan: I have discussed this patient in conjunction with Dr. Brito. Dr. Brito will plan to perform an Esophagogastroduodenoscopy and colonoscopy with possible biopsies and cessation of bleeding. Procedure details, risks and benefits have been explained to the patient. Patient is unable to consent for herself. Per nursing staff, speech therapy has been consulted. Patient is currently NPO until following speech evaluation. We will obtain consent from her . We will await speech therapy evaluation. If patient continues to stay NPO, Dr. Brito will perform an EGD only tomorrow. Thank you for allowing us to participate in this patient's care. Office Visits / Consults: [id number] IP Consult L3
[2020-06-10] MEDS: 0.9% Normal Saline 1,000 ML 150 ML IV ×2 (15:14→22:31)
--- NOTE | 2020-06-10 15:56 | VDLE_ITS ---
Reason For Study: PAIN RIGHT LEFT GSV is normal. GSV is normal. CFV is compressible, spontaneous, phasic, CFV is compressible, spontaneous, phasic, competent and demonstrates normal competent, and demonstrates normal augmentation. augmentation. FV is compressible, spontaneous, phasic, FV is compressible, spontaneous, phasic, competent and demonstrates normal competent and demonstrates normal augmentation. augmentation. POP V is compressible, spontaneous, phasic, POP V is compressible, spontaneous, phasic, competent and demonstrates normal competent and demonstrates normal augmentation. augmentation. T/P Trunk is compressible. T/P Trunk is compressible. PTV is compressible. PTV is compressible. RT PerV is compressible. LT PerV is compressible. Procedure Exam performed portable in patient room. The study was technically difficult. Technically difficult study- pt is wheelchair bound and contracted with legs that are painful to the touch . A preliminary report was called and/or faxed to [facility]. Interpretation Summary No evidence for acute deep venous thrombosis bilateral lower extremities with patent and compressible bilateral great saphenous veins. Exam noted to be technically difficult with patient wheelchair-bound and contracted legs. Ordering Physician: Wandy Hwang Referring Physician: SHMUEL BEAR Performed By: Tammie Curry, SALOME, RVT
[2020-06-10 16:28] LABS: Bacteria 0 SEEN /hpf (None Seen); Mucous, Urine 0 SEEN /hpf (<or=2+); Red Blood Cells-Urine 0 SEEN /hpf (0-5); Squamous Epithelial Cells - UA 0 SEEN /hpf (5-10); White Blood Cells 0 SEEN /hpf (0-5)
[2020-06-10 16:35] LABS: Color, Urine Yellow (Yellow); Glucose, Dipstick Normal (Normal); Ketone-Dipstick Negative (Negative); Leukocyte Esterase-Dipstick Negative /ul (Negative); Nitrite-Dipstick Negative (Negative); Occult Blood-Urine Negative /ul (Negative); Protein-Dipstick 15 mg/dl (Negative); Urine Bilirubin Dipstick Negative (Negative); Urine Clarity Clear (Clear); Urine Urobilinogen Normal (Normal)
[2020-06-10 16:48] LABS: Ferritin 116 ng/mL (8-252); Iron 14 ug/dL (50-170); Iron Binding Capacity,Total 225 ug/dL (250-450); PERCENT IRON SATURATION 6.2 % (15.0-55.0)
[2020-06-10] MEDS: Vancomycin IV 500 MG/100 ML BAG 100 MG IV (16:55)
[2020-06-10 16:57] LABS: M R Staph aureus DNA By PCR POSITIVE (Negative); Probe Check PASS; Staph aureus DNA By PCR POSITIVE (Negative)
[2020-06-10 17:06] LABS: Bedside Glucose 194 mg/dL (70-110)
[2020-06-10] MEDS: Budesonide Respules 0.5 MG/2 ML AMPUL.NEB. INHALATION (19:50)
[2020-06-10] MEDS: Losartan Potassium 50 MG Tablet PO (22:52)
[2020-06-10] MEDS: Insulin Lispro 100 UNIT/ML INSULN.PEN SC (23:13)
[2020-06-10 23:31] LABS: Bedside Glucose 219 mg/dL (70-110)
[2020-06-11] VITALS (27 sets, daily range): BP systolic 140–183; BP diastolic 51–91; PULSE 92–107; RESP 16–24; TEMP 36.4–38.8; O2SAT 94–98; BMI 22.1
[2020-06-11 06:41] LABS: Bedside Glucose 130 mg/dL (70-110)
[2020-06-11] MEDS: Budesonide Respules 0.5 MG/2 ML AMPUL.NEB. INHALATION ×2 (07:21→19:41)
[2020-06-11 07:25] LABS: Absolute Neutrophil Count 19.2 X10^3/uL (2.0-7.7); Basophil# 0.03 X10^3/uL; Basophil% 0.1 % (0-1); Eosinophil# 0.03 X10^3/uL; Eosinophils% 0.1 % (0-5); Hematocrit 21.5 % (37-47); Hemoglobin 6.6 g/dL (12.0-15.0); Lymphocyte % 3.3 % (19-41); Mean Corp Hgb Conc 30.7 g/dL (32-36); Mean Corpuscular Hgb 25.1 pg (27.0-32.0); Mean Corpuscular Volume 81.7 fL (81-99); Mean Platelet Vol. 9.2 fl (6.2-12.0); Monocyte# 0.82 X10^3/uL; Monocyte% 3.9 % (0-10); NRBC Flagged by Analyzer 0 % (0-5); Neutrophil % 91.4 % (47-70); POSITIVE MORPHOLOGY YES; Platelet Count 361 K/mm3 (150-450); RBC Distribution Width SD 64.4 fl (35.1-43.9); Red Blood Count 2.63 M/mm3 (4.2-5.4)
[2020-06-11 07:35] LABS: Differential Indicated SCAN CRITERIA MET
[2020-06-11 07:47] LABS: Anion Gap 9 (5-15); BUN 93 mg/dL (7-18); BUN/Creat Ratio 71.5 RATIO (10-20); Calcium,Total 8.7 mg/dL (8.5-10.1); Chloride 114 mmol/L (98-107); EST Glomerular Filtration Rate 42 mL/min (>60); Est Glom Filt Rate - Afr Amer 51 mL/min (>60); Estimated Creatinine Clearance 24.79 ml/min; Glucose 129 mg/dL (74-106); Potassium 4.5 mmol/L (3.5-5.1); Sodium Level 138 mmol/L (136-145)
[2020-06-11 07:52] LABS: Hemoglobin A1c 6.7 % (3.8-5.6)
[2020-06-11 08:18] LABS: Anisocytosis 1+; Differential Comment SCANNED; Hypochromasia 1+
[2020-06-11 08:25] LABS: International Normalized Ratio 1.2; Partial Thromboplast Time 40.9 Seconds (24.1-36.2); Prothrombin Time (Protime)PT. 14.7 SECONDS (11.7-14.9)
[2020-06-11] MEDS: Acetaminophen 650 MG Suppository RC (10:10)
[2020-06-11] MEDS: hydrALAZINE 20 MG/ML Vial 10 MG IV ×2 (11:03→19:35)
[2020-06-11] MEDS: 0.9% Saline Lock 10 ML Syringe IV ×3 (11:04→22:59)
--- NOTE | 2020-06-11 12:36 | PCM.PN.HOSP ---
Patient Problems: Active and Suspected Problems (Last Reviewed 06/10/20 @ 14:30 by Yessenia PRECIADO, PAHerbert) Acute anemia (Acute) GI bleed (Acute) Subjective: patient seen and examined. She was lying in bed and had no complaints. Review of systems was otherwise negative. She is due for an EGD today. Patient unable to take in much orally, so couldnt have bowel prep to have colonoscopy today. She still has a fever and remains tachycardic and tachypneic. He has trended up to 21 and hemoglobin is down to 6.6 today. Vitals/I&O's: Vital Signs Temp Pulse Resp BP Pulse Ox 100.4 F H 101 H 20 H 163/55 H 97 06/11/20 11:31 06/11/20 11:31 06/11/20 11:31 06/11/20 11:31 06/11/20 11:31 Oxygen Delivery Method Room Air Weight: 113 lb 5.082 oz Body Mass Index (BMI) 22.1 Finger Stick Blood Glucose 167 Intake and Output for Last 24 Hours 06/09/20 06/10/20 06/11/20 23:59 23:59 23:59 Intake Total 1675 / 1875 1310 / 1310 Output Total 650 / 1100 675 / 675 Balance 1025 / 775 635 / 635 General: Alert, very frail and lethargic HEENT: Atraumatic, PERRLA, EOMI, Normocephalic Oral: Dry Mucosa Neck: Supple, No JVD, Negative Carotid Bruits Lungs: Clear to auscultation, Normal air movement, No rhonchi, No wheeze, No rales Cardiovascular: Regular rate, Regular Rhythm, Normal S1, Normal S2, No murmurs Abdomen: Bowel Sounds Present, Soft, Non Tender Extremities: - - 1+ edema of lower extremities Skin: Ulcer/ Wound -both LEs wrapped in bandage Lymphatic: No Cervical, Supraclavicular, or Inguinal Adenopathy Neurological: Cranial nerves II-XII grossly intact, Neuro grossly intact, Motor Exam 5/5 strength throughout Psych/Mental Status: Flat Affect Microbiology Past 72 Hours 06/10/20 14:00 Wound - Leg, Right Gram Stain - Final 06/10/20 14:00 Wound - Leg, Right Wound Culture - Preliminary Gram negative maria luz Beta hemolytic organism Gram positive organism 06/10/20 11:34 Mucosa - Nose SARS-CoV-2 Antigen (Rapid) - Final 06/10/20 10:50 Stool Stool Occult Blood (KINZA) - Final Laboratory Results 06/10/20 09:30: Iron 14 L, TIBC 225 L, Iron Saturation 6.2 L, Ferritin 116 06/10/20 14:00: S.aureus Protein A PCR POSITIVE H, MRSA (PCR) POSITIVE H 06/10/20 15:00: Urine Color Yellow, Urine Clarity Clear, Urine pH 5.0, Ur Specific [place] 1.010, Urine Protein 15 H, Urine Glucose (UA) Normal, Urine Ketones Negative, Urine Occult Blood Negative, Urine Nitrite Negative, Urine Bilirubin Negative, Urine Urobilinogen Normal, Ur Leukocyte Esterase Negative, Urine RBC 0 SEEN, Urine WBC 0 SEEN, Ur Squamous Epith Cells 0 SEEN, Urine Bacteria 0 SEEN, Urine Mucus 0 SEEN 06/10/20 16:58: POC Glucose 194 H 06/10/20 22:47: POC Glucose 219 H 06/11/20 06:35: POC Glucose 130 H 06/11/20 07:10: WBC 21.0 H, RBC 2.63 L, Hgb 6.6 L, Hct 21.5 L, MCV 81.7, MCH 25.1 L, MCHC 30.7 L, RDW Std Deviation 64.4 H, RDW Coeff of Ceferino 22.0 H, Plt Count 361, MPV 9.2, Immature Gran % (Auto) 1.200 H, Neut % (Auto) 91.4 H, Lymph % (Auto) 3.3 L, [place] % (Auto) 3.9, Eos % (Auto) 0.1, Baso % (Auto) 0.1, Absolute Neuts (auto) 19.2 H, Absolute Lymphs (auto) 0.70 L, Nucleated RBC % 0, Differential Comment SCANNED, Hypochromasia 1+, Anisocytosis 1+ 06/11/20 07:10: Sodium 138, Potassium 4.5, Chloride 114 H, Carbon Dioxide 15.0 L, Anion Gap 9, BUN 93 H, Creatinine 1.30 H, Estim Creat Clear Calc 24.79, Est GFR (MDRD) Af Amer 51 L, Est GFR (MDRD) Non-Af 42 L, BUN/Creatinine Ratio 71.5 H, Glucose 129 H, Calcium 8.7 06/11/20 07:10: PT 14.7, INR 1.2, APTT 40.9 H 06/11/20 07:10: Hemoglobin A1c 6.7 H Diagnostic Data Chest X-Ray 06/10/20 09:39 IMPRESSION: Degenerative changes, as described above. No demonstrated acute cardiopulmonary process. Electronically Signed: Paul Cabrera MD at 11:28 EST Tel , Service support , Tibia/Fibula X-Ray 06/10/20 09:51 IMPRESSION: Osteopenia of the tibia and fibula. There is no acute bone abnormality. Electronically Signed: Paul Cabrera MD at 11:35 EST Tel , Service support , Foot X-Ray 06/10/20 10:53 IMPRESSION: Osteoporosis. Mild degenerative changes are noted in the tarsometatarsal articulations. There is no definite bone erosion to suggest osteomyelitis. Electronically Signed: Paul Cabrera MD at 11:25 EST Tel , Service support , Current Medications Acetaminophen (Acetaminophen 500 Mg Tablet) 1,000 mg PO Q8 [facility] Last Admin: 06/11/20 05:25 Dose: Not Given Documented by: Acetaminophen (Acetaminophen 650 Mg Suppository) 650 mg RC Q6H PRN PRN PRN Reason: pain/fever Last Admin: 06/11/20 10:10 Dose: 650 mg Documented by: Amlodipine Besylate (Amlodipine 10 Mg Tablet) 10 mg PO DAILY JAILENE Atorvastatin Calcium (Atorvastatin Calcium 10 Mg Tablet) 10 mg PO QHS [facility] Last Admin: 06/10/20 22:55 Dose: Not Given Documented by: Betamethasone Valerate (Betamethasone Valerate 1 Tube) 1 applic TOPICAL DAILY [facility] Budesonide (Budesonide Respules 0.5 Mg/2 Ml Ampul.Neb.) 0.5 mg INHALATION Q12H.RT [facility] Last Admin: 06/11/20 07:21 Dose: 0.5 mg Documented by: Calcium Carbonate (Calcium (Elemental) 500 Mg Tablet) [facility] Last Admin: 06/11/20 07:23 Dose: Not Given Documented by: Cholecalciferol (Cholecalciferol (Vit D3) 1,000 Unit (25mcg)) 1,000 unit [facility] Last Admin: 06/11/20 07:23 Dose: Not Given Documented by: Clonidine (Clonidine Hcl 0.2 Mg Tablet) 0.2 mg PO BID [facility] Last Admin: 06/11/20 11:39 Dose: Not Given Documented by: Hydralazine HCl (Hydralazine 50 Mg Tablet) 100 mg PO TID [facility] Last Admin: 06/11/20 05:25 Dose: Not Given Documented by: Hydralazine HCl (Hydralazine 20 Mg/Ml Vial) 10 mg IV Q6H PRN PRN PRN Reason: BLOOD PRESSURE ELEVATION Last Admin: 06/11/20 11:03 Dose: 10 mg Documented by: Hydrochlorothiazide (Hydrochlorothiazide 25 Mg Tablet) 25 mg PO DAILY [facility] Vancomycin IV Pharmacy to Dose (1 ea/ Sodium Chloride) 500 mls @ 250 mls/hr IV X1 PRN; Protocol PRN Reason: Rx to Dose Pantoprazole Sodium 40 mg/ (Sodium Chloride) 110 mls @ 330 mls/hr IV Q12 [facility] Last Infusion: 06/11/20 11:57 Dose: Infused Documented by: Vancomycin HCl () 500 mg in 100 mls @ 100 mls/hr IV Q24H [facility] Insulin Human Lispro (Insulin Lispro 100 Unit/Ml Insuln.Pen) [facility]; Protocol Last Admin: 06/11/20 11:39 Dose: Not Given Documented by: Losartan Potassium (Losartan Potassium 50 Mg Tablet) 50 mg PO BID [facility] Last Admin: 06/11/20 11:39 Dose: Not Given Documented by: Ondansetron HCl (Ondansetron 4 Mg/2 Ml Vial) 4 mg IV Q8H PRN PRN PRN Reason: NAUSEA/VOMITING Phenytoin Sodium (Phenytoin Na 100 Mg Capsule) 200 mg [facility] Polyethylene Glycol (Polyethylene Glycol 3350 17 Gm Packet) 17 gm PO DAILY [facility] Last Admin: 06/11/20 11:39 Dose: Not Given Documented by: Polysaccharide Iron Complex (Iron Polysaccharide Complex 150 Mg Capsule) 150 mg PO BID [facility] Last Admin: 06/11/20 11:38 Dose: Not Given Documented by: Sodium Chloride (0.9% Saline Lock 10 Ml Syringe) 10 - 40 ml IV UD PRN PRN Reason: SALINE FLUSH Last Admin: 06/11/20 11:04 Dose: 10 ml Documented by: Sucralfate (Sucralfate 1 Gm Tablet) 1 gm PO TIDAC [facility] Last Admin: 06/11/20 11:39 Dose: Not Given Documented by: STROKE Vital Signs/Narrative: Vital Signs Temp Pulse Resp BP BP Pulse Ox 06/11/20 11:31 100.4 F H 101 H 20 H 163/55 H 97 06/11/20 11:03 96 06/11/20 11:01 100.5 F H 96 170/69 H 06/11/20 09:57 101.8 F H 100 20 H 182/64 H 97 06/11/20 09:27 104 H 20 H 06/11/20 09:16 101.8 F H Medical Necessity - Tobacco Use Smoking Status: Never smoker Assessment/Plan All Active Problems (Last Reviewed 06/10/20 @ 14:30 by Yessenia PRECIADO, PA-C) Acute anemia (Acute) GI bleed (Acute) Hx of flexible sigmoidoscopy (Acute) History of surgical removal of skin lesion (Acute) Hx of knee surgery (Acute) History of bilateral knee replacement (Acute) History of back surgery (Acute) History of rectal abscess (Acute) Hx of biopsy (Acute) History of esophagogastroduodenoscopy (EGD) (Acute) Hx of colonoscopy (Acute) Hx of cataract surgery (Acute) Hemiparesis affecting dominant side as late effect of cerebrovascular accident (Acute) Dilantin toxicity (Acute) Femur fracture (Acute) Hyponatremia (Acute) Elevated parathyroid hormone (Acute) Fall (Acute) Closed right hip fracture (Acute) History of rectal abscess (Resolved) 79 y/o admitted with a complaint of weakness and lethargy #Sepsis due to Bilateral lower extremity cellulitis and leg wounds SIRS criteria today is 3/4 (tahcypnea, fever, tachycardia, leucocytosis) on IV vancomycin; will broaden antibiotic coverage and add on IV zosyn wound cultures growing gram negative maria luz, bet hemolytic and gram positive organisms blood cultures pending PT/OT on board. Fall precautions. #Anemia Hb today is down to 6.6. Have previous EGD in 2017 which showed dark discoloration in the stomach with concerns for melanosis coli. Duodenum was normal. Colonoscopy had poor bowel prep. for EGD today; couldnt take bowel prep so cannot have colonoscopy today Iron panel showed iron of 14 with low TIBC and iron saturation of 6.3 with ferritin being low normal at 116. History units of packed red blood cells as hemoglobin is down to 6.6 today. Continue sucralfate and IV pantoprazole. #CKD stage III: Creatinine is down to 1.3 today. Continue hydrating with IVF. #Nonamion gap metabolic acidosis bicarb is 15; this is likely due to KIRTI oN CKD. will trend. # #Hypertension: On amlodipine and losartan. #Hyperlipidemia: On statin #. Diabetes mellitus: On insulin sliding scale. Accu-Cheks AC at bedtime. #History of seizure disorder: On phenytoin #Hyperlipidemia: On statin Prophylaxis: SCDs CODE STATUS: DNR CCA no intubation Inpatient E&M: 34158 Subs Hosp L3
--- NOTE | 2020-06-11 13:34 | OP.EGD_ITS ---
Patient Name: Mehreen Brown Procedure Date: 06/11/2020 1:10 PM Date of : 1940 Age: 79 Procedure: Upper GI endoscopy Indications: Iron deficiency anemia Providers: Asif Brito MD Medicines: Monitored Anesthesia Care Patient Profile: This is an 79 year old female. Refer to note in patient chart for documentation of history and physical. Complications: No immediate complications. Estimated blood loss: None. Procedure: Pre-Anesthesia Assessment: - Prior to the procedure, a History and Physical was performed, and patient medications and allergies were reviewed. The patient's tolerance of previous anesthesia was also reviewed. The risks and benefits of the procedure and the sedation options and risks were discussed with the patient. All questions were answered, and informed consent was obtained. Prior Anticoagulants: The patient has taken Plavix (clopidogrel). After reviewing the risks and benefits, the patient was deemed in satisfactory condition to undergo the procedure. After obtaining informed consent, the endoscope was passed under direct vision. Throughout the procedure, the patient's blood pressure, pulse, and oxygen saturations were monitored continuously. The gastroscope was introduced through the mouth, and advanced to the third part of duodenum. The upper GI endoscopy was accomplished without difficulty. The patient tolerated the procedure well. Scope In: 1:21:37 PM Scope Out: 1:24:01 PM Total Procedure Duration Time 0 hours 2 minutes 24 seconds Findings: The esophagus was normal. The stomach was normal. The examined duodenum was normal. Impression: - Normal esophagus. - Normal stomach. - Normal examined duodenum. - No specimens collected. Recommendation: - Return patient to hospital [facility] for ongoing care. - Diet per speech therapy. - Continue present medications. Procedure Code(s): --- Professional --- 40550, Esophagogastroduodenoscopy, flexible, transoral; diagnostic, including collection of specimen(s) by brushing or washing, when performed (separate procedure) Diagnosis Code(s): --- Professional --- D50.9, Iron deficiency anemia, unspecified CPT copyright 2017 [employer]. All rights reserved. The codes documented in this report are preliminary and upon criminology professor review may be revised to meet current compliance requirements. Asif Brito MD 06/11/2020 1:34:17 PM This report has been signed electronically. Number of Addenda: 0 Note Initiated On: 06/11/2020 1:10 PM
[2020-06-11 14:55] LABS: Bedside Glucose 145 mg/dL (70-110)
--- NOTE | 2020-06-11 15:04 | NURSING ---
RN CM Assessment Introduced role of RN CM to patient Catalino Brown at bedside. Patient is resting and confused- not able to participate in RN CM Assessment. ?Care providers, pharmacy, and demographics verified with . Admit Dx: Cellulitis of the lower extremities Re-Admit: No Barriers/Issues: Patient has been assisting with patient care. Has two son's that live near by and are in their 50's-60's. They are able to assist. 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 Patient recently on home oxygen since March 2020. states capable of caring for patient and understands challenge or difficulty at this current time with patient illness and would be agreeable to SNF if that is recommended. Arminda Olmstead made aware that preference is TCU if in net work with patient insurance. Secondary would be [facility] but states that he really did not care for that place and wants TCU. If SNF not recommended but additional therapy is- Okay with Home with [facility]HC is preference. In network list to [facility] and SNF provided to . PCP: Leonardo Bear III Preferred Pharmacy: [facility] Insurance: [facility] Rx Benefit:?Yes LNOK: Catalino Brown LW/HPOA: Has HPOA- nurse took a copy. HPOA- Catalino Brown Living Arrangements:? Lives with in a SSH, ramp to enter ADL?s: Chair bound, requires assistance with all ADLs Transportation: transports DME: Grab bars in bathroom, built in shower seat, shower bench, Glucometer, Reg LITTLEJOHN, BSC. HHC: [facility] in past. Preference if needed SNF: Past at [facility]. Preference is TCU. Goal: Home with [facility] vs. SNF- TCU. DC PLAN: Home with HH vs. SNF- most likely SNF. RNCM to f/u on PT/OT GOLDY Diaz
--- NOTE | 2020-06-11 15:27 | CASEMGMT ---
Social Work Note SW updated that if SNF is needed, pt's preference for SNF is TCU. SW placed a call to Shelley with TCU and put pt on TCU lust. Plan: Home Vs SNF Arminda Medina DIRECTOR OF LABOR AND DELIVERY, [employer]
[2020-06-11 16:41] LABS: Bedside Glucose 153 mg/dL (70-110)
[2020-06-11] MEDS: Insulin Lispro 100 UNIT/ML INSULN.PEN SC (17:00)
[2020-06-11] MEDS: Vancomycin IV 500 MG/100 ML BAG 100 MG IV (17:00)
[2020-06-11] MEDS: hydrALAZINE 50 MG Tablet 100 MG PO (22:24)
[2020-06-11] MEDS: Losartan Potassium 50 MG Tablet PO (22:25)
[2020-06-11] MEDS: cloNIDine HCl 0.2 MG Tablet PO (22:25)
[2020-06-11] MEDS: Acetaminophen 500 MG Tablet 1000 MG PO (22:35)
[2020-06-11] MEDS: Atorvastatin Calcium 10 MG Tablet PO (22:35)
[2020-06-12] VITALS (27 sets, daily range): BP systolic 113–198; BP diastolic 35–82; PULSE 77–99; RESP 16–24; TEMP 36.3–37.4; O2SAT 95–100
[2020-06-12 00:01] LABS: Bedside Glucose 122 mg/dL (70-110)
[2020-06-12] MEDS: hydrALAZINE 20 MG/ML Vial 10 MG IV (01:55)
[2020-06-12] MEDS: 0.9% Saline Lock 10 ML Syringe IV ×4 (01:56→06:59)
[2020-06-12] MEDS: Labetalol (Prefilled) 20 MG/4 ML 10 MG IV (02:44)
[2020-06-12] MEDS: Furosemide 40 MG/4 ML Vial IV (05:57)
--- NOTE | 2020-06-12 06:03 | PCM.HOSP.N ---
Hospitalist Note Blood pressure high, systolic 180s to 190s. Patient on secondary to PRBC transfusion. Earlier received 10 mg of IV hydralazine and labetalol. I think its mainly hypervolemic after receiving PRBC transfusion. Lasix 40 mg IV 1 dose stat and then check blood pressure after an hour. Discussed with the nursing staff.
[2020-06-12] MEDS: Budesonide Respules 0.5 MG/2 ML AMPUL.NEB. INHALATION ×2 (07:02→20:01)
[2020-06-12 07:11] LABS: Bedside Glucose 129 mg/dL (70-110)
[2020-06-12] MEDS: Polyethylene Glycol 3350 17 GM PACKET PO (08:00)
[2020-06-12] MEDS: hydrALAZINE 50 MG Tablet 100 MG PO ×2 (08:03→20:58)
[2020-06-12] MEDS: Sucralfate 1 GM Tablet PO ×2 (08:03→18:01)
[2020-06-12] MEDS: amLODIPine 10 MG Tablet PO (08:03)
[2020-06-12] MEDS: cloNIDine HCl 0.2 MG Tablet PO ×2 (08:03→20:59)
[2020-06-12] MEDS: hydroCHLOROthiazide 25 MG Tablet PO (08:03)
[2020-06-12] MEDS: Phenytoin Na 100 MG Capsule 200 MG PO (08:03)
[2020-06-12] MEDS: Losartan Potassium 50 MG Tablet PO ×2 (08:03→20:59)
[2020-06-12] MEDS: Calcium (Elemental) 500 MG Tablet PO ×2 (08:03→18:02)
[2020-06-12] MEDS: Acetaminophen 500 MG Tablet 1000 MG PO ×2 (08:05→20:58)
[2020-06-12] MEDS: Iron Polysaccharide Complex 150 MG CAPSULE PO ×2 (08:14→20:59)
[2020-06-12 08:41] LABS: Absolute Lymphocyte Count 1.02 X10^3/uL (0.83-4.51); Absolute Neutrophil Count 21.5 X10^3/uL (2.0-7.7); Basophil# 0.07 X10^3/uL; Basophil% 0.3 % (0-1); Eosinophil# 0.03 X10^3/uL; Eosinophils% 0.1 % (0-5); Hematocrit 31.3 % (37-47); Hemoglobin 9.7 g/dL (12.0-15.0); Lymphocyte # 1.02 X10^3/ul (4.0); Lymphocyte % 4.2 % (19-41); Mean Corpuscular Hgb 26.1 pg (27.0-32.0); Mean Corpuscular Volume 84.4 fL (81-99); Mean Platelet Vol. 9.2 fl (6.2-12.0); Monocyte# 1.49 X10^3/uL; Monocyte% 6.1 % (0-10); NRBC Flagged by Analyzer 0 % (0-5); Neutrophil # 21.47 X10^3/uL (2.7-7.7); Neutrophil % 87.9 % (47-70); POSITIVE DIFFERENTIAL YES; Platelet Count 326 K/mm3 (150-450); RBC Distribution Width CV 19.2 % (11.6-14.6); RBC Distribution Width SD 59.2 fl (35.1-43.9); Red Blood Count 3.71 M/mm3 (4.2-5.4); White Blood Count 24.4 K/mm3 (4.4-11.0)
[2020-06-12 08:42] LABS: Differential Indicated SCAN CRITERIA MET
[2020-06-12 08:56] LABS: Anion Gap 8 (5-15); BUN 83 mg/dL (7-18); BUN/Creat Ratio 64.3 RATIO (10-20); Calcium,Total 9.2 mg/dL (8.5-10.1); Chloride 118 mmol/L (98-107); Creatinine, Serum 1.29 mg/dL (0.55-1.02); EST Glomerular Filtration Rate 42 mL/min (>60); Est Glom Filt Rate - Afr Amer 51 mL/min (>60); Estimated Creatinine Clearance 24.98 ml/min; Glucose 150 mg/dL (74-106); Potassium 4.6 mmol/L (3.5-5.1); Sodium Level 142 mmol/L (136-145)
[2020-06-12 09:07] LABS: Differential Comment SCANNED
--- NOTE | 2020-06-12 10:58 | CASEMGMT ---
Addendum entered by Arminda Medina 06/12/20 12:11: Pt's Catalino here at [facility]. SW updated Catalino that PT/OT recommended SNF, TCU is able to accept pt pending pre-cert. Catalino states understanding, confirms preference for SNF is [facility] TCU. Plan: TCU pending pre-cert Original Note: Social Work Note SW updated by PT/OT that SNF is being recommended. Per CM notes, if SNF is being recommended pt's 's first choice for SNF is TCU. DAVINA placed a call to Shelley with TCU. Shelley to submit for pre-cert. Plan: TCU pending pre-cert Arminda Medina METAL ALLOY SCIENTIST, [employer] STREET[employer]
--- NOTE | 2020-06-12 11:58 | CASEMGMT ---
Palliative screening tool completed at this time due to Lace/strata score of 3. Patient meets criteria at this time. Hospitalist notified and agreeable for referral. KRYSTYNA CHOW sent referral to Palliative Care.
[2020-06-12 12:16] LABS: Bedside Glucose 218 mg/dL (70-110)
[2020-06-12] MEDS: Insulin Lispro 100 UNIT/ML INSULN.PEN SC ×2 (12:38→18:01)
[2020-06-12] MEDS: Menthol/Lanolin/Calamine/Znox 113 GM Tube 1 APPLIC TOPICAL ×2 (13:41→20:59)
--- NOTE | 2020-06-12 14:30 | NURSING ---
LATE ENTRY - DR BLACKWELL MADE AWARE OF PT BP THIS AFTERNOON 113/35 - NEW ORDER TO HOLD 1400 [address]
--- NOTE | 2020-06-12 16:45 | PN_ITS ---
Patient Problems: Active and Suspected Problems (Last Reviewed 06/10/20 @ 14:30 by Yessenia PRECIADO, PAHerbert) Acute anemia (Acute) GI bleed (Acute) Subjective: Patient seen and examined. She was lying in bed and had no complaints. Review of symptoms otherwise negative. She had EGD yesterday which was negative. Patient and her refused colonoscopy. Have a mild fever today of 99.3 Fahrenheit. Creatinine is 1.9 and bicarb is 16 today. Anion gap is 8. WBC is 24.4 and hemoglobin is 9.7. Platelets are 326. Vitals/I&O's: Vital Signs Temp Pulse Resp BP Pulse Ox 99.3 F H 88 18 113/35 L 96 06/12/20 13:42 06/12/20 14:31 06/12/20 13:42 06/12/20 14:31 06/12/20 13:42 Oxygen Delivery Method Room Air Weight: 113 lb 5.082 oz Body Mass Index (BMI) 22.1 Finger Stick Blood Glucose 167 Intake and Output for Last 24 Hours 06/10/20 06/11/20 06/12/20 23:59 23:59 23:59 Intake Total 1675 / 1875 1970 / 1970 630 / 630 Output Total 650 / 1100 1575 / 1575 830 / 830 Balance 1025 / 775 395 / 395 -200 / -200 General: Alert, very frail HEENT: Atraumatic, PERRLA, EOMI, Normocephalic Oral: Dry Mucosa Neck: Supple, No JVD, Negative Carotid Bruits Lungs: Clear to auscultation, Normal air movement, No rhonchi, No wheeze, No rales Cardiovascular: Regular rate, Regular Rhythm, Normal S1, Normal S2, No murmurs Abdomen: Bowel Sounds Present, Soft, Non Tender Extremities: - - 1+ edema of lower extremities Skin: Ulcer/ Wound -both LEs wrapped in bandage Lymphatic: No Cervical, Supraclavicular, or Inguinal Adenopathy Neurological: Cranial nerves II-XII grossly intact, Neuro grossly intact, Motor Exam 5/5 strength throughout Psych/Mental Status: Flat Affect Microbiology Past 72 Hours 06/10/20 14:00 Wound - Leg, Right Gram Stain - Final 06/10/20 14:00 Wound - Leg, Right Wound Culture - Preliminary Pseudomonas aeroginosa Streptococcus group B Staphylococcus aureus 06/10/20 14:00 Wound - Leg, Right Anaerobic Culture - Preliminary Checking for anaerobes, further studies to follow. 06/10/20 15:00 Blood Culture (Wb) - Left Forearm Blood Culture - Preliminary No growth in 48 hours. 06/10/20 15:00 Blood Culture (Wb) - Anticubital Right Blood Culture - Preliminary No growth in 48 hours. 06/10/20 11:34 Mucosa - Nose SARS-CoV-2 Antigen (Rapid) - Final 06/10/20 10:50 Stool Stool Occult Blood (KINZA) - Final Laboratory Results 06/11/20 14:00: Blood Type A POSITIVE, Antibody Screen NEGATIVE, Crossmatch See Detail 06/11/20 22:33: POC Glucose 122 H 06/12/20 07:01: POC Glucose 129 H 06/12/20 08:30: WBC 24.4 H, RBC 3.71 L, Hgb 9.7 L, Hct 31.3 L, MCV 84.4, MCH 26.1 L, MCHC 31.0 L, RDW Std Deviation 59.2 H, RDW Coeff of Ceferino 19.2 H, Plt Count 326, MPV 9.2, Immature Gran % (Auto) 1.400 H, Neut % (Auto) 87.9 H, Lymph % (Auto) 4.2 L, [place] % (Auto) 6.1, Eos % (Auto) 0.1, Baso % (Auto) 0.3, Absolute Neuts (auto) 21.5 H, Absolute Lymphs (auto) 1.02, Nucleated RBC % 0, Differential Comment SCANNED 06/12/20 08:30: Sodium 142, Potassium 4.6, Chloride 118 H, Carbon Dioxide 16.0 L , Anion Gap 8, BUN 83 H, Creatinine 1.29 H, Estim Creat Clear Calc 24.98, Est GFR (MDRD) Af Amer 51 L, Est GFR (MDRD) Non-Af 42 L, BUN/Creatinine Ratio 64.3 H , Glucose 150 H, Calcium 9.2 06/12/20 11:55: POC Glucose 218 H Current Medications Acetaminophen (Acetaminophen 500 Mg Tablet) 1,000 mg PO Q8 JAILENE Last Admin: 06/12/20 13:44 Dose: Not Given Documented by: Acetaminophen (Acetaminophen 650 Mg Suppository) 650 mg RC Q6H PRN PRN PRN Reason: pain/fever Last Admin: 06/11/20 10:10 Dose: 650 mg Documented by: Amlodipine Besylate (Amlodipine 10 Mg Tablet) 10 mg PO DAILY [facility] Last Admin: 06/12/20 08:03 Dose: 10 mg Documented by: Atorvastatin Calcium (Atorvastatin Calcium 10 Mg Tablet) 10 mg PO QHS [facility] Last Admin: 06/11/20 22:35 Dose: 10 mg Documented by: Betamethasone Valerate (Betamethasone Valerate 1 Tube) 1 applic TOPICAL DAILY [facility] Last Admin: 06/12/20 12:38 Dose: 1 applicatio Documented by: Budesonide (Budesonide Respules 0.5 Mg/2 Ml Ampul.Neb.) 0.5 mg INHALATION Q12H.RT [facility] Last Admin: 06/12/20 07:02 Dose: 0.5 mg Documented by: Calamine/Phenol (Menthol/Lanolin/Calamine/Znox 113 Gm Tube) 1 applic TOPICAL TID [facility]; Protocol Last Admin: 06/12/20 13:41 Dose: 1 applicatio Documented by: Calcium Carbonate (Calcium (Elemental) 500 Mg Tablet) [facility] Last Admin: 06/12/20 08:03 Dose: 500 mg Documented by: Cholecalciferol (Cholecalciferol (Vit D3) 1,000 Unit (25mcg)) [facility] Last Admin: 06/12/20 08:03 Dose: 1,000 unit Documented by: Clonidine (Clonidine Hcl 0.2 Mg Tablet) 0.2 mg PO BID [facility] Last Admin: 06/12/20 08:03 Dose: 0.2 mg Documented by: Hydralazine HCl (Hydralazine 50 Mg Tablet) 100 mg PO TID [facility] Last Admin: 06/12/20 14:31 Dose: Not Given Documented by: Hydralazine HCl (Hydralazine 20 Mg/Ml Vial) 10 mg IV Q6H PRN PRN PRN Reason: BLOOD PRESSURE ELEVATION Last Admin: 06/12/20 01:55 Dose: 10 mg Documented by: Hydrochlorothiazide (Hydrochlorothiazide 25 Mg Tablet) 25 mg PO DAILY [facility] Last Admin: 06/12/20 08:03 Dose: 25 mg Documented by: Vancomycin IV Pharmacy to Dose (1 ea/ Sodium Chloride) 500 mls @ 250 mls/hr IV X1 PRN; Protocol PRN Reason: Rx to Dose Pantoprazole Sodium 40 mg/ (Sodium Chloride) 110 mls @ 330 mls/hr IV Q12 [facility] Last Infusion: 06/12/20 11:00 Dose: Infused Documented by: Vancomycin HCl () 500 mg in 100 mls @ 100 mls/hr IV Q24H [facility] Last Infusion: 06/11/20 18:00 Dose: Infused Documented by: Insulin Human Lispro (Insulin Lispro 100 Unit/Ml Insuln.Pen) 0 unit SC ACHS [facility]; Protocol Last Admin: 06/12/20 12:38 Dose: 4 u Documented by: Losartan Potassium (Losartan Potassium 50 Mg Tablet) 50 mg PO BID [facility] Last Admin: 06/12/20 08:03 Dose: 50 mg Documented by: Ondansetron HCl (Ondansetron 4 Mg/2 Ml Vial) 4 mg IV Q8H PRN PRN PRN Reason: NAUSEA/VOMITING Phenytoin Sodium (Phenytoin Na 100 Mg Capsule) 200 mg PO DAILYCM [facility] Last Admin: 06/12/20 08:03 Dose: 200 mg Documented by: Polyethylene Glycol (Polyethylene Glycol 3350 17 Gm Packet) 17 gm PO DAILY [facility] Last Admin: 06/12/20 08:00 Dose: 17 gm Documented by: Polysaccharide Iron Complex (Iron Polysaccharide Complex 150 Mg Capsule) 150 mg PO BID [facility] Last Admin: 06/12/20 08:14 Dose: 150 mg Documented by: Sodium Chloride (0.9% Saline Lock 10 Ml Syringe) 10 - 40 ml IV UD PRN PRN Reason: SALINE FLUSH Last Admin: 06/12/20 06:59 Dose: 10 ml Documented by: Sucralfate (Sucralfate 1 Gm Tablet) 1 gm PO TIDAC [facility] Last Admin: 06/12/20 12:38 Dose: Not Given Documented by: STROKE Vital Signs/Narrative: Vital Signs Temp Pulse Resp BP Pulse Ox 06/12/20 14:31 88 113/35 L 06/12/20 14:00 89 06/12/20 13:42 99.3 F H 88 18 113/35 L 96 Medical Necessity - Tobacco Use Smoking Status: Never smoker Assessment/Plan All Active Problems (Last Reviewed 06/10/20 @ 14:30 by Yessenia PRECIADO PAAlmaC) Acute anemia (Acute) GI bleed (Acute) Hx of flexible sigmoidoscopy (Acute) History of surgical removal of skin lesion (Acute) Hx of knee surgery (Acute) History of bilateral knee replacement (Acute) History of back surgery (Acute) History of rectal abscess (Acute) Hx of biopsy (Acute) History of esophagogastroduodenoscopy (EGD) (Acute) Hx of colonoscopy (Acute) Hx of cataract surgery (Acute) Hemiparesis affecting dominant side as late effect of cerebrovascular accident (Acute) Dilantin toxicity (Acute) Femur fracture (Acute) Hyponatremia (Acute) Elevated parathyroid hormone (Acute) Fall (Acute) Closed right hip fracture (Acute) History of rectal abscess (Resolved) 79 y/o admitted with a complaint of weakness and lethargy #Sepsis due to Bilateral lower extremity cellulitis and leg wounds * wbc has trended up to 24 today * wound cultures growing Pseudomonas aeruginosa and strep group B as well as staph aureus. Blood cultures are negative. * add on IV zosyn * PT/OT on board. * consult ID to help determine duration of antibiotics * * PT/OT on board. Fall precautions. * * #Anemia * s/p 2 units of PRBCs * Hb today is 9.7 * Have previous EGD in 2017 which showed dark discoloration in the stomach with concerns for melanosis coli. Duodenum was normal. Colonoscopy had poor bowel prep. * EGD done during this admission showed normal esophagus, stomach and duodenum * Iron panel showed iron of 14 with low TIBC and iron saturation of 6.3 with ferritin being low normal at 116. * patient and her refused colonoscopy * Continue sucralfate and IV pantoprazole. * #CKD stage III: * Creatinine is down to 1.29 today. * Continue hydrating with IVF. * #Nonamion gap metabolic acidosis * bicarb is 16; this is likely due to CKD 3 * if it persists, will consult nephro * will trend. # #Hypertension: On amlodipine and losartan. #Hyperlipidemia: On statin # Diabetes mellitus: On insulin sliding scale. Accu-Cheks AC at bedtime. #History of seizure disorder: On phenytoin #Hyperlipidemia: On statin DVT Prophylaxis: SCDs CODE STATUS: DNR CCA no intubation * Disposition: will likely need placement. Inpatient E&M: 45[address] [facility] L3
[2020-06-12 16:50] LABS: Bedside Glucose 154 mg/dL (70-110)
[2020-06-12 17:51] LABS: Vancomycin, Trough Level 16.1 ug/mL (5.0-15.0)
[2020-06-12] MEDS: Vancomycin IV 500 MG/100 ML BAG 100 MG IV (18:06)
[2020-06-12] MEDS: Atorvastatin Calcium 10 MG Tablet PO (20:58)
[2020-06-12 22:21] LABS: Bedside Glucose 152 mg/dL (70-110)
[2020-06-13] VITALS (14 sets, daily range): BP systolic 142–175; BP diastolic 57–77; PULSE 77–90; RESP 16–18; TEMP 36.5–37.2; O2SAT 95–96
--- NOTE | 2020-06-13 00:08 | PCM.RX.CS ---
Consult Pharmacy has been consulted to manage selected antiobiotic: Vancomycin Type of Consult: Follow-up Suspected Infection: Skin/Soft tissue Labs: Sodium 142 mmol/L (136-145) 06/12/20 08:30 Potassium 4.6 mmol/L (3.5-5.1) 06/12/20 08:30 Chloride 118 mmol/L (98-107) H 06/12/20 08:30 Carbon Dioxide 16.0 mmol/L (21.0-32.0) L 06/12/20 08:30 Anion Gap 8 (5-15) 06/12/20 08:30 BUN 83 mg/dL (7-18) H 06/12/20 08:30 Creatinine 1.29 mg/dL (0.55-1.02) H 06/12/20 08:30 Est GFR (MDRD) Af Amer 51 mL/min (>60) L 06/12/20 08:30 Est GFR (MDRD) Non-Af 42 mL/min (>60) L 06/12/20 08:30 BUN/Creatinine Ratio 64.3 RATIO (10-20) H 06/12/20 08:30 Glucose 150 mg/dL (74-106) H 06/12/20 08:30 Vancomycin Trough 16.1 ug/mL (5.0-15.0) H 06/12/20 16:36 Microbiology: Microbiology 06/10/20 14:00 Wound - Leg, Right Gram Stain - Final 06/10/20 14:00 Wound - Leg, Right Wound Culture - Preliminary Pseudomonas aeroginosa Streptococcus group B Staphylococcus aureus 06/10/20 14:00 Wound - Leg, Right Anaerobic Culture - Preliminary Checking for anaerobes, further studies to follow. 06/10/20 15:00 Blood Culture (Wb) - Left Forearm Blood Culture - Preliminary No growth in 48 hours. 06/10/20 15:00 Blood Culture (Wb) - Anticubital Right Blood Culture - Preliminary No growth in 48 hours. 06/10/20 11:34 Mucosa - Nose SARS-CoV-2 Antigen (Rapid) - Final 06/10/20 10:50 Stool Stool Occult Blood (KINZA) - Final Goal Trough: 15-20 mcg/mL Pharmacy Plan for Drug Dosing: Pharmacy Service will continue to monitor and adjust dosing as required. TROUGH 16.1 NO CHANGES CHECK TROUGH IN 4 DAYS Follow-Up Labs: Trough Vancomycin Labs to be done on [date and time ordered]: 06/16 @ 3606
[2020-06-13] MEDS: Acetaminophen 500 MG Tablet 1000 MG PO ×3 (05:26→21:49)
[2020-06-13] MEDS: hydrALAZINE 50 MG Tablet 100 MG PO ×3 (05:26→21:49)
[2020-06-13] MEDS: Menthol/Lanolin/Calamine/Znox 113 GM Tube 1 APPLIC TOPICAL ×2 (05:43→21:49)
[2020-06-13] MEDS: Sucralfate 1 GM Tablet PO ×2 (06:37→14:28)
[2020-06-13 06:50] LABS: Bedside Glucose 139 mg/dL (70-110)
[2020-06-13 07:15] LABS: Absolute Lymphocyte Count 1.11 X10^3/uL (0.83-4.51); Absolute Neutrophil Count 15.2 X10^3/uL (2.0-7.7); Basophil# 0.06 X10^3/uL; Basophil% 0.3 % (0-1); Eosinophils% 0.6 % (0-5); Hematocrit 27.9 % (37-47); Hemoglobin 8.7 g/dL (12.0-15.0); Lymphocyte # 1.11 X10^3/ul (4.0); Lymphocyte % 6.2 % (19-41); Mean Corp Hgb Conc 31.2 g/dL (32-36); Mean Corpuscular Hgb 26.6 pg (27.0-32.0); Mean Corpuscular Volume 85.3 fL (81-99); Mean Platelet Vol. 9.4 fl (6.2-12.0); Monocyte# 1.04 X10^3/uL; Monocyte% 5.8 % (0-10); NRBC Flagged by Analyzer 0 % (0-5); Neutrophil # 15.19 X10^3/uL (2.7-7.7); Neutrophil % 85.5 % (47-70); Platelet Count 268 K/mm3 (150-450); RBC Distribution Width CV 19.8 % (11.6-14.6); RBC Distribution Width SD 61.6 fl (35.1-43.9); Red Blood Count 3.27 M/mm3 (4.2-5.4); White Blood Count 17.8 K/mm3 (4.4-11.0)
[2020-06-13 07:36] LABS: Anion Gap 8 (5-15); BUN 78 mg/dL (7-18); BUN/Creat Ratio 61.4 RATIO (10-20); Chloride 119 mmol/L (98-107); Creatinine, Serum 1.27 mg/dL (0.55-1.02); EST Glomerular Filtration Rate 43 mL/min (>60); Est Glom Filt Rate - Afr Amer 52 mL/min (>60); Estimated Creatinine Clearance 25.38 ml/min; Glucose 135 mg/dL (74-106); Potassium 4.3 mmol/L (3.5-5.1); Sodium Level 145 mmol/L (136-145)
[2020-06-13] MEDS: Calcium (Elemental) 500 MG Tablet PO ×2 (09:17→17:09)
[2020-06-13] MEDS: cloNIDine HCl 0.2 MG Tablet PO ×2 (09:20→21:49)
[2020-06-13] MEDS: Losartan Potassium 50 MG Tablet PO ×2 (09:20→21:49)
[2020-06-13] MEDS: hydroCHLOROthiazide 25 MG Tablet PO (09:20)
[2020-06-13] MEDS: Polyethylene Glycol 3350 17 GM PACKET PO (09:21)
[2020-06-13] MEDS: amLODIPine 10 MG Tablet PO (09:21)
--- NOTE | 2020-06-13 09:52 | NURSING ---
This nurse did not give dilantin po and iron po b/c after calling pharmacy and talking with Sebastian, they can not be crushed. This nurse messaged Dr. Hwang to get in liquid form and to call pharmacy to figure out what dose/frequency for the dilantin pt needed.
--- NOTE | 2020-06-13 11:21 | PN_ITS ---
Patient Problems: Active and Suspected Problems (Last Reviewed 06/10/20 @ 14:30 by Yessenia PRECIADO, PAAlmaC) Acute anemia (Acute) GI bleed (Acute) Subjective: Patient seen and examined. She had no complaints and felt well. She was sleeping calmly in bed. Per nurse, no active events overnight. BBC has trended down to 17.8. Hemoglobin is 8.7. Vitals/I&O's: Vital Signs Temp Pulse Resp BP Pulse Ox 97.7 F L 85 18 167/66 H 96 06/13/20 09:30 06/13/20 09:30 06/13/20 09:30 06/13/20 09:30 06/13/20 09:30 Oxygen Delivery Method Room Air Weight: 113 lb 5.082 oz Body Mass Index (BMI) 22.1 Finger Stick Blood Glucose 167 Intake and Output for Last 24 Hours 06/11/20 06/12/20 06/13/20 23:59 23:59 23:59 Intake Total 1969 / 1969 1180 / 1180 200 / 200 Output Total 1575 / 1575 1955 / 1954 350 / 350 Balance 395 / 395 -775 / -775 -150 / -150 General: Alert, very frail HEENT: Atraumatic, PERRLA, EOMI, Normocephalic Oral: Dry Mucosa Neck: Supple, No JVD, Negative Carotid Bruits Lungs: Clear to auscultation, Normal air movement, No rhonchi, No wheeze, No rales Cardiovascular: Regular rate, Regular Rhythm, Normal S1, Normal S2, No murmurs Abdomen: Bowel Sounds Present, Soft, Non Tender Extremities: - - 1+ edema of lower extremities Skin: Ulcer/ Wound -both LEs wrapped in bandage Lymphatic: No Cervical, Supraclavicular, or Inguinal Adenopathy Neurological: Cranial nerves II-XII grossly intact, Neuro grossly intact, Motor Exam 5/5 strength throughout Psych/Mental Status: Flat Affect Microbiology Past 72 Hours 06/10/20 14:00 Wound - Leg, Right Gram Stain - Final 06/10/20 14:00 Wound - Leg, Right Wound Culture - Final Pseudomonas aeroginosa Streptococcus agalactiae (B) Meth. resistant Staph. aureus 06/10/20 14:00 Wound - Leg, Right Anaerobic Culture - Preliminary Checking for anaerobes, further studies to follow. 06/10/20 15:00 Blood Culture (Wb) - Left Forearm Blood Culture - Preliminary No growth in 48 hours. 06/10/20 15:00 Blood Culture (Wb) - Anticubital Right Blood Culture - Preliminary No growth in 48 hours. 06/10/20 11:34 Mucosa - Nose SARS-CoV-2 Antigen (Rapid) - Final 06/10/20 10:50 Stool Stool Occult Blood (KINZA) - Final Laboratory Results 06/12/20 11:55: POC Glucose 218 H 06/12/20 16:17: POC Glucose 154 H 06/12/20 16:36: Vancomycin Trough 16.1 H 06/12/20 21:09: POC Glucose 152 H 06/13/20 06:30: WBC 17.8 H, RBC 3.27 L, Hgb 8.7 L, Hct 27.9 L, MCV 85.3, MCH 26.6 L, MCHC 31.2 L, RDW Std Deviation 61.6 H, RDW Coeff of Ceferino 19.8 H, Plt Count 268, MPV 9.4, Immature Gran % (Auto) 1.600 H, Neut % (Auto) 85.5 H, Lymph % (Auto) 6.2 L, [place] % (Auto) 5.8, Eos % (Auto) 0.6, Baso % (Auto) 0.3, Absolute Neuts (auto) 15.2 H, Absolute Lymphs (auto) 1.11, Nucleated RBC % 0 06/13/20 06:30: Sodium 145, Potassium 4.3, Chloride 119 H, Carbon Dioxide 18.0 L , Anion Gap 8, BUN 78 H, Creatinine 1.27 H, Estim Creat Clear Calc 25.38, Est GFR (MDRD) Af Amer 52 L, Est GFR (MDRD) Non-Af 43 L, BUN/Creatinine Ratio 61.4 H , Glucose 135 H, Calcium 9.0 06/13/20 06:33: POC Glucose 139 H Current Medications Acetaminophen (Acetaminophen 500 Mg Tablet) 1,000 mg PO Q8 JAILENE Last Admin: 06/13/20 05:26 Dose: 1,000 mg Documented by: Acetaminophen (Acetaminophen 650 Mg Suppository) 650 mg RC Q6H PRN PRN PRN Reason: pain/fever Last Admin: 06/11/20 10:10 Dose: 650 mg Documented by: Amlodipine Besylate (Amlodipine 10 Mg Tablet) 10 mg PO DAILY [facility] Last Admin: 06/13/20 09:21 Dose: 10 mg Documented by: Atorvastatin Calcium (Atorvastatin Calcium 10 Mg Tablet) 10 mg PO QHS [facility] Last Admin: 06/12/20 20:58 Dose: 10 mg Documented by: Betamethasone Valerate (Betamethasone Valerate 1 Tube) 1 applic TOPICAL DAILY [facility] Last Admin: 06/12/20 12:38 Dose: 1 applicatio Documented by: Budesonide (Budesonide Respules 0.5 Mg/2 Ml Ampul.Neb.) 0.5 mg INHALATION Q12H.RT [facility] Last Admin: 06/12/20 20:01 Dose: 0.5 mg Documented by: Calamine/Phenol (Menthol/Lanolin/Calamine/Znox 113 Gm Tube) 1 applic TOPICAL TID [facility]; Protocol Last Admin: 06/13/20 05:43 Dose: 1 applicatio Documented by: Calcium Carbonate (Calcium (Elemental) 500 Mg Tablet) [facility] Last Admin: 06/13/20 09:17 Dose: 500 mg Documented by: Cholecalciferol (Cholecalciferol (Vit D3) 1,000 Unit (25mcg)) 1,[facility] Last Admin: 06/13/20 09:20 Dose: 1,000 unit Documented by: Clonidine (Clonidine Hcl 0.2 Mg Tablet) 0.2 mg PO BID [facility] Last Admin: 06/13/20 09:20 Dose: 0.2 mg Documented by: Hydralazine HCl (Hydralazine 50 Mg Tablet) 100 mg PO TID [facility] Last Admin: 06/13/20 05:26 Dose: 100 mg Documented by: Hydralazine HCl (Hydralazine 20 Mg/Ml Vial) 10 mg IV Q6H PRN PRN PRN Reason: BLOOD PRESSURE ELEVATION Last Admin: 06/12/20 01:55 Dose: 10 mg Documented by: Hydrochlorothiazide (Hydrochlorothiazide 25 Mg Tablet) 25 mg PO DAILY [facility] Last Admin: 06/13/20 09:20 Dose: 25 mg Documented by: Vancomycin IV Pharmacy to Dose (1 ea/ Sodium Chloride) 500 mls @ 250 mls/hr IV X1 PRN; Protocol PRN Reason: Rx to Dose Pantoprazole Sodium 40 mg/ (Sodium Chloride) 110 mls @ 330 mls/hr IV Q12 [facility] Last Infusion: 06/12/20 22:54 Dose: Infused Documented by: Vancomycin HCl () 500 mg in 100 mls @ 100 mls/hr IV Q24H [facility] Last Infusion: 06/12/20 19:46 Dose: Infused Documented by: Piperacillin Sod/Tazobactam (Sod 3.375 gm/ Sodium Chloride) 50 mls @ 12.5 mls/hr IV Q8 [facility] Last Infusion: 06/13/20 09:25 Dose: Infused Documented by: Insulin Human Lispro (Insulin Lispro 100 Unit/Ml Insuln.Pen) 0 unit SC ACHS [facility]; Protocol Last Admin: 06/13/20 06:34 Dose: Not Given Documented by: Losartan Potassium (Losartan Potassium 50 Mg Tablet) 50 mg PO BID [facility] Last Admin: 06/13/20 09:20 Dose: 50 mg Documented by: Ondansetron HCl (Ondansetron 4 Mg/2 Ml Vial) 4 mg IV Q8H PRN PRN PRN Reason: NAUSEA/VOMITING Phenytoin Sodium (Phenytoin Na 100 Mg Capsule) [facility] Last Admin: 06/12/20 08:03 Dose: 200 mg Documented by: Polyethylene Glycol (Polyethylene Glycol 3350 17 Gm Packet) 17 gm PO DAILY [facility] Last Admin: 06/13/20 09:21 Dose: 17 gm Documented by: Polysaccharide Iron Complex (Iron Polysaccharide Complex 150 Mg Capsule) 150 mg PO BID [facility] Last Admin: 06/12/20 20:59 Dose: 150 mg Documented by: Sodium Chloride (0.9% Saline Lock 10 Ml Syringe) 10 - 40 ml IV UD PRN PRN Reason: SALINE FLUSH Last Admin: 06/12/20 06:59 Dose: 10 ml Documented by: Sucralfate (Sucralfate 1 Gm Tablet) 1 gm PO TIDAC [facility] Last Admin: 06/13/20 06:37 Dose: 1 gm Documented by: STROKE Vital Signs/Narrative: Vital Signs Temp Pulse Resp BP Pulse Ox 06/13/20 09:30 97.7 F L 85 18 167/66 H 96 06/13/20 08:00 83 06/13/20 07:26 95 Medical Necessity - Tobacco Use Smoking Status: Never smoker Assessment/Plan All Active Problems (Last Reviewed 06/10/20 @ 14:30 by Yessenia PRECIADO, PA-C) Acute anemia (Acute) GI bleed (Acute) Hx of flexible sigmoidoscopy (Acute) History of surgical removal of skin lesion (Acute) Hx of knee surgery (Acute) History of bilateral knee replacement (Acute) History of back surgery (Acute) History of rectal abscess (Acute) Hx of biopsy (Acute) History of esophagogastroduodenoscopy (EGD) (Acute) Hx of colonoscopy (Acute) Hx of cataract surgery (Acute) Hemiparesis affecting dominant side as late effect of cerebrovascular accident (Acute) Dilantin toxicity (Acute) Femur fracture (Acute) Hyponatremia (Acute) Elevated parathyroid hormone (Acute) Fall (Acute) Closed right hip fracture (Acute) History of rectal abscess (Resolved) 79 y/o admitted with a complaint of weakness and lethargy #Sepsis due to Bilateral lower extremity cellulitis and leg wounds * wbc is down to 17 today * wound cultures growing Pseudomonas aeruginosa and strep group B as well as staph aureus. Blood cultures are negative. * on IV vancomycin and zosyn. * PT/OT on board. * fall precautions * * #Anemia * s/p 2 units of PRBCs * Hb today is 8.7 * Have previous EGD in 2017 which showed dark discoloration in the stomach with concerns for melanosis coli. Duodenum was normal. Colonoscopy had poor bowel prep. * EGD done during this admission showed normal esophagus, stomach and duodenum * Iron panel showed iron of 14 with low TIBC and iron saturation of 6.3 with ferritin being low normal at 116. * patient and her refused colonoscopy * Continue sucralfate and IV pantoprazole. * #CKD stage III: * Creatinine is down to 1.27 today. * DC IF * #Nonamion gap metabolic acidosis * bicarb is 18 today. * continue to monitor. * #Hypertension: On amlodipine and losartan. #Hyperlipidemia: On statin # Diabetes mellitus: On insulin sliding scale. Accu-Cheks AC at bedtime. #History of seizure disorder: On phenytoin #Hyperlipidemia: On statin DVT Prophylaxis: SCDs CODE STATUS: DNR CCA no intubation * Disposition: awaiting placement Inpatient E&M: [id number] [facility] L2
[2020-06-13 12:40] LABS: Bedside Glucose 111 mg/dL (70-110)
--- NOTE | 2020-06-13 15:08 | PCM.CONS.P ---
Problem List (1) Weakness Status: Acute (2) Debility Status: Acute (3) Hemiparesis affecting dominant side as late effect of cerebrovascular accident Status: Chronic (4) Acute anemia Status: Acute (5) Type II diabetes mellitus Status: Chronic Qualifiers: Diabetes mellitus termite exterminator insulin use: without termite exterminator use (6) GI bleed Status: Acute (7) CVA (cerebral vascular accident) Status: Chronic Qualifiers: CVA mechanism: unspecified Qualified Code(s): I63.9 - Cerebral infarction, unspecified (8) HTN (hypertension) Status: Chronic Qualifiers: Hypertension type: essential hypertension Qualified Code(s): I10 - Essential (primary) hypertension (9) Asthma Status: Chronic Qualifiers: Asthma severity: unspecified severity Asthma persistence: unspecified Asthma complication type: unspecified Qualified Code(s): J45.909 - Unspecified asthma, uncomplicated (10) HLD (hyperlipidemia) Status: Chronic Qualifiers: Hyperlipidemia type: unspecified Qualified Code(s): E78.5 - Hyperlipidemia, unspecified (11) Chronic renal failure, stage 3 (moderate) Status: Chronic Qualifiers: Chronic kidney disease stage 3 subtype: stage 3b (GFR 30-44) Qualified Code(s): N18.32 - Chronic kidney disease, stage 3b (12) Elevated parathyroid hormone Status: Chronic (13) Allergic rhinitis Status: Chronic Qualifiers: Allergic rhinitis trigger: unspecified Allergic rhinitis seasonality: unspecified seasonality (14) GERD (gastroesophageal reflux disease) Status: Chronic Qualifiers: Esophagitis presence: esophagitis presence not specified Qualified Code(s): K21.9 - Gastro-esophageal reflux disease without esophagitis (15) Seizure disorder Status: Chronic History of Present Illness Date of Consult: 06/13/20 Reason for Consult: Lace/strata score of 3, weakness Requesting physician: [] Primary care physician: Dr. Leonardo Bear III, MD - History of Present Illness The patient is a 79 year old F with past medical history as below, presented to the ED 06/10/2020 with complaints of weakness and lethargy. Complained of shortness of breath, increased weakness, sore throat, and general malaise. Noted she has not been to a doctor in over a year secondary to Covid pandemic. Reports she hit her leg a few weeks ago and has had an ulcer there ever since, which has progressed to green drainage from both legs. Past history of nonhealing ulcers as well. She does have type II DM but has been diet controlled until now. Hemoglobin A1c 09/27/2016 was 5.3%, now it is 6.7%. Vitals in ED were stable. Lab work showed hyponatremia at 129, bicarb 18, KIRTI with BUN of 112 and creatinine 1.59. She had a white count of 19,500 and hemoglobin was low at 7.3. Chest x-ray nothing acute. Rapid Covid negative, blood cultures NGTD. Hemoccult stool negative. X-ray of tib-fib showed osteopenia, no acute abnormality. Foot x-ray with mild degenerative changes, nothing to suggest osteomyelitis. She was admitted for further evaluation and management. Mehreen is being seen today for palliative care consultation after being screened and positive 2/2 to Lace/Strata score of 3. Doing fairly well since her last ER visit in October 2019 after a fall. She and her have been trying to avoid going out of the house secondary to the pandemic. They both have received their Covid vaccinations. They have 2 sons that live nearby and are able to assist when needed. They deliver groceries. Patient's , Catalino has been on home O2 since March 2020, however he continues to care for Mehreen. There is a ramp into the home. Mehreen does not drive but her spouse does. They do have some DME in the home, including grab bars in the bathroom, built-in shower seat, shower bench, wheelchair, and BSC. Patient's tries to take care of her as much as possible, however he is becoming more disabled as well. Patient's son is planning on moving in for the time being to assist with care, he took an FMLA from work. According to CM this evening, patient's insurance [employer] denied her skilled therapy and she will be discharged home in approximately 1 to 2 days. There was a peer to peer but she was still denied. There are some concerns for safety as she has dysphagia and severe weakness, she is now on pur?ed with thickened liquids. She is unable to sit up straight. She is at high risk for aspiration. Patient still has a white count but is trending down. She is getting iron infusions and is s/p 2 units PRBCs. EGD was completed by Dr. Calabretta and revealed completely normal esophagus, stomach, and duodenum. The patient and her refused a colonoscopy. KIRTI has been improving since fluid hydration, her IV fluids were discontinued. Wound cultures to bilat lower extremity leg wounds were growing Pseudomonas aeruginosa, strep group B, and MRSA. Patient is a DNR CCA with no intubation. Patient Problems: Chronic Problems (Last Reviewed 06/10/20 @ 14:30 by Yessenia PRECIADO, PAAlmaC) Type II diabetes mellitus (Chronic) Hemiparesis affecting dominant side as late effect of cerebrovascular accident (Chronic) HTN (hypertension) (Chronic) Asthma (Chronic) Diet-controlled diabetes mellitus (Chronic) Anemia (Chronic) acute on chronic anemia CVA (cerebral vascular accident) (Chronic) HLD (hyperlipidemia) (Chronic) Chronic renal failure, stage 3 (moderate) (Chronic) Hypoalbuminemia (Chronic) Elevated parathyroid hormone (Chronic) Rectal abscess (Chronic) Allergic rhinitis (Chronic) GERD (gastroesophageal reflux disease) (Chronic) Seizure disorder (Chronic) Chronic kidney disease (Chronic) Surgical History: - - R hip fracture repair, Back Fusion, Endoscopies, BL TKR, colonoscopy. Psychiatric History: No pertinent psych hx Home Medications: Ambulatory Orders Medication Instructions Recorded Amlodipine [Norvasc] 1 tab PO DAILY 09/26/16 Fluticasone Propionate [Flovent 1 puff IH BID 09/26/16 Hfa] Losartan Potassium 1 tab PO BID 09/26/16 Simvastatin [Zocor] 1 tab PO QHS 09/26/16 Calcium (Elemental) [Os-Denny 500] 500 mg PO BIDCM 01/03/17 Cholecalciferol (VIT D3) [Vitamin 1,000 unit PO DAILYCM 01/03/17 D3] Clonidine HCl [Catapres] 0.2 mg PO BID 01/03/17 Clopidogrel Bisulfate [Plavix] 75 mg PO DAILY 01/03/17 hydrALAZINE [Apresoline] 100 mg PO TID 01/03/17 Phenytoin Na [Dilantin] 200 mg PO DAILYCM #30 01/05/17 Acetaminophen [Tylenol] 1,000 mg PO Q8 06/10/20 Hydrochlorothiazide [Hctz] 25 mg PO DAILY 06/10/20 Iron Polysaccharide Complex 150 mg PO BIDCM 06/10/20 [Ferrex 150] Mometasone Furoate 1 applic TP DAILY 06/10/20 Pantoprazole Sodium [Protonix] 20 mg PO DAILY 06/10/20 Polyethylene Glycol 3350 [Miralax] 17 gm PO DAILY 06/10/20 Sucralfate [Carafate] 1 gm PO TID 06/10/20 Allergies almond oil Allergy (Verified 11/02/19 15:53) Hives Maternal Family History: Family History (Last Reviewed 06/13/20 @ 15:32 by FATMATA Leon) Father Myocardial infarction CVA (cerebral vascular accident) Diabetes Mother Hypertension History Items: No pertinent history Paternal Family History: Family History (Last Reviewed 06/13/20 @ 15:32 by FATMATA Leon) Father Myocardial infarction CVA (cerebral vascular accident) Diabetes Mother Hypertension History Items: No pertinent history - Social History Lives: Spouse/ Significant Other - Catalino Smoking Status: Never smoker Alcohol: None Drugs: None Code Status: DNRCC-A - No intubation Review of Systems Constitutional: Reports: Anorexia, Malaise, Weakness, Fatigue. Denies: Chills, Fever, Weight Change Eyes: Denies: Vision Change HEENT: Reports: Difficulty Swallowing, Hard of Hearing. Denies: Nasal Congestion, Sore Throat Cardiovascular: Reports: Edema. Denies: Chest Pain, Palpitations Respiratory: Denies: Cough, Shortness of Breath, Sputum production, Wheezing Gastrointestinal: Denies: Abdominal Pain, Constipation, Diarrhea, Nausea, Vomiting Genitourinary: Reports: Incontinence. Denies: Dysuria Musculoskeletal: Reports: Joint Pain, Joint swelling, Leg Pain. Denies: Back Pain Neurological: Reports: Seizures. Denies: Change in Speech, Numbness, Tingling Psychiatric: Reports: Depression. Denies: Anxiety Hematologic/ Lymphatic: Reports: Anemia, Easy Bruising, Easy Bleeding Physical Exam Subjective: Patient is eating dinner, pureed w/ thickened liquids, nursing program manager assisting her as she is unable to feed self. She seems somewhat lethargic but opens eyes upon command, answer some questions but often says I do not know. General: Cooperative, No apparent distress, Lethargic HEENT: Atraumatic, Normocephalic Oral: Dry Mucosa Neck: Supple, Trachea Midline Lungs: Diminished, - - Poor inspiratory effort Cardiovascular: Regular rate, Regular Rhythm, Normal S1, Normal S2, Murmur Abdomen: Bowel Sounds Present, Soft, Non Tender Extremities: No clubbing, Diminished Peripheral Pulses, Edema Skin: Ulcer/ Wound Musculoskeletal: Arthritic Changes, Cachexia, Muscle Wasting Lymphatic: - - No adenopathy Neurological: - - Difficult to assess due to cognitive status, no new focal deficits noted, is more weak on the right side. Psych/Mental Status: Flat Affect Objective: Vital Signs Temp Pulse Resp BP Pulse Ox 98.9 F 82 18 142/58 H 96 06/13/20 14:29 06/13/20 14:29 06/13/20 14:29 06/13/20 14:29 06/13/20 14:29 Oxygen Delivery Method Room Air Weight: 51.4 kg Body Mass Index (BMI) 22.1 Finger Stick Blood Glucose 167 Intake and Output for Last 24 Hours 06/11/20 06/12/20 06/13/20 23:59 23:59 23:59 Intake Total 1969 / 1969 1180 / 1180 430 / 430 Output Total 1575 / 1575 1955 / 1955 525 / 525 Balance 395 / 395 -775 / -775 -95 / -95 Microbiology Past 72 Hours 06/10/20 14:00 Gram Stain - Final Wound - Leg, Right Wound Culture - Final Pseudomonas aeroginosa Streptococcus agalactiae (B) Meth. resistant Staph. aureus Anaerobic Culture - Final Anaerobic cocci 06/10/20 15:00 Blood Culture - Preliminary Blood Culture (Wb) - Left Forearm No growth in 48 hours. 06/10/20 15:00 Blood Culture - Preliminary Blood Culture (Wb) - Anticubital Right No growth in 48 hours. 06/10/20 11:34 SARS-CoV-2 Antigen (Rapid) - Final Mucosa - Nose 06/10/20 10:50 Stool Occult Blood (KINZA) - Final Stool Laboratory Tests Past 24 Hrs 06/12/20 06/13/20 06/13/20 16:36 06:30 06:30 WBC 17.8 H RBC 3.27 L Hgb 8.7 L Hct 27.9 L MCV 85.3 MCH 26.6 L MCHC 31.2 L RDW Std Deviation 61.6 H RDW Coeff of Ceferino 19.8 H Plt Count 268 MPV 9.4 Immature Gran % (Auto) 1.600 H Neut % (Auto) 85.5 H Lymph % (Auto) 6.2 L P[place] % (Auto) 5.8 Eos % (Auto) 0.6 Baso % (Auto) 0.3 Absolute Neuts (auto) 15.2 H Absolute Lymphs (auto) 1.11 Nucleated RBC % 0 Sodium 145 Potassium 4.3 Chloride 119 H Carbon Dioxide 18.0 L Anion Gap 8 BUN 78 H Creatinine 1.27 H Estim Creat Clear Calc 25.38 Est GFR (MDRD) Af Amer 52 L Est GFR (MDRD) Non-Af 43 L BUN/Creatinine Ratio 61.4 H Glucose 135 H Calcium 9.0 Vancomycin Trough 16.1 H Assessment/Plan All Active Problems (Last Reviewed 06/10/20 @ 14:30 by Yessenia PRECIADO, PA-C) Acute anemia (Acute) GI bleed (Acute) Weakness (Acute) Debility (Acute) Hx of flexible sigmoidoscopy (Acute) History of surgical removal of skin lesion (Acute) Hx of knee surgery (Acute) History of bilateral knee replacement (Acute) History of back surgery (Acute) History of rectal abscess (Acute) Hx of biopsy (Acute) History of esophagogastroduodenoscopy (EGD) (Acute) Hx of colonoscopy (Acute) Hx of cataract surgery (Acute) Dilantin toxicity (Acute) Femur fracture (Acute) Hyponatremia (Acute) Fall (Acute) Closed right hip fracture (Acute) History of rectal abscess (Resolved) 79-year-old female seen for palliative care consultation secondary to positive screening tool, has acute on chronic weakness, anemia, CKD stage III, diabetes. 1. Weakness/debility: Has progressed over the last several weeks, therapy has recommended mcc at discharge and awaiting pre-CERT for TCU-now insurance has denied so patient has to go home, son taking FMLA to move in with him to assist with care. She is at extremely high risk for readmission, we will follow her closely as an outpatient once she is discharged. Call placed to and he welcomes the idea of palliative care and visit soon after patient discharge. 2. Anemia/GIB: Hemoglobin low 6.6 this admit, transfused w/ 2u of PRBCs and improved to 8.7 on 06/13/2020. She is feeling better. Follows with her PCP, but again has not been seen in over a year secondary to Covid. 3. T2 DM/asthma/HTN/history of CVA/HLD/CKD stage III/elevated PTH/GERD/seizure disorder/allergic rhinitis: Complicates overall care, management, recovery and prognosis. Defer management to her PCP and specialists. Certainly we can help if she develops significant shortness of breath or other complications from her comorbid conditions. Greater than 50% of care spent [id number] with education and counseling, explained palliative services, discussed recent decline in patient mobility and health overall, and also briefly discussed expected course of her chronic conditions. Explained high risk for malnutrition. Spouse is very open to palliative services if insurance will cover, okay with RN visit within a couple days of discharge. Thank you for the opportunity to participate in this patient's care, please do not hesitate to contact [facility] with any further questions or concerns. Palliative direct line is [phone]. We will have patient follow up in her home approximately 3 days after discharge and will discuss palliative services further.
[2020-06-13 16:35] LABS: Bedside Glucose 135 mg/dL (70-110)
[2020-06-13] MEDS: Vancomycin IV 500 MG/100 ML BAG 100 MG IV (17:10)
--- NOTE | 2020-06-13 17:30 | CASEMGMT ---
Social Work Note DAVINA received call from Shelley with TCU stating pre-cert was denied. Peer to Peer number is [phone] Reference Number is [id number]. DAVINA reviewed chart, pt with periods of being confused and disoriented. DAVINA placed a call to pt's Catalino. DAVINA updated Catalino that pt was denied SNF and explained options of asking physician to do Peer to Peer, Private Pay at SNF, or home with [facility]. Catalino asked to see if physician would complete Peer to Peer. DAVINA updated physician on denial, agreeable to doing Peer to Peer. SW called Mabel and arranged Peer to Peer for tonight. Physician updated. SW in to speak with pt as SW was updated that pt was depressed and wanted to . SW introduced self and role at [facility]. Pt is alert to name, place, somewhat time. Pt knew it was June but not the year. Pt states she wants to go home. SW informed pt that this worker is working with pt's on discharge plans. SW asked pt about history of MH. Pt states she only has depression now because she is at [facility]. Pt states when she is home she is happy and not depressed. SW asked pt about hobbies/interests. Pt states she likes to watch her good shows on the TV. Pt states she is depressed at [facility] because she can't get out of here and she ain't had no food. SW informed pt that physician has the decision on when pt is medically ready for discharge. SW asked pt about any thoughts/plans to harm self. Pt denied any current suicidal thoughts/plans/ideations. Pt states she prefers to return home at discharge. DAVINA received call from physician that denial was upheld for SNF. SW placed a call to pt's Catalino and updated him that peer to peer was completed but denial was upheld. Catalino states he spoke with his family and one of his sons will be taking FMLA to come live with pt and Catalino to assist in taking care of pt. Catalino states he is agreeable to [facility]. DAVINA asked Catalino about pt's history of MH. Catalino states pt has a history of anxiety and depression. DAVINA informed Catalino that pt has made statements about wanting to . Catalino states pt has been saying that for a month at home. Catalino asked if pt has been crying while at [facility] and DAVINA informed Catalino that pt's notes do state that she has been tearful while at [facility]. Catalino states he has no concerns with pt's statements or with pt's MH. Catalino states pt will have 24/7 supervision at home and he is always with pt. Catalino states pt would never try to harm herself. DAVINA spoke with Catalino about Crisis Lines and bringing pt to ED for MH evaluation if he becomes concerns with pt's MH and Catalino states he is aware of resources. Catalino agreeable to taking pt home with [facility]. Catalino asked this worker about pt's medical needs at discharge and DAVINA encouraged Catalino to speak with pt's RN when he arrives to [facility] when pt is discharged. Catalino states understanding, denied additional needs or concerns. DAVINA updated physician. Plan: Home with [facility]. [facility] referral to be made. Arminda Medina METALLURGICAL ENGINEERING TEACHER, [employer]
[2020-06-13] MEDS: Phenytoin Na 100 MG/2 ML Vial IV (21:50)
[2020-06-13] MEDS: Atorvastatin Calcium 10 MG Tablet PO (21:51)
[2020-06-13 22:00] LABS: Bedside Glucose 144 mg/dL (70-110)
[2020-06-14] VITALS (17 sets, daily range): BP systolic 138–178; BP diastolic 54–88; PULSE 72–94; RESP 16–20; TEMP 36.5–36.8; O2SAT 97–98
[2020-06-14] MEDS: Menthol/Lanolin/Calamine/Znox 113 GM Tube 1 APPLIC TOPICAL ×3 (05:40→22:28)
[2020-06-14] MEDS: Acetaminophen 500 MG Tablet 1000 MG PO ×3 (05:59→22:32)
[2020-06-14] MEDS: hydrALAZINE 50 MG Tablet 100 MG PO ×3 (06:00→22:32)
[2020-06-14] MEDS: Sucralfate 1 GM Tablet PO ×3 (06:00→16:51)
--- NOTE | 2020-06-14 06:35 | NURSING ---
Leg dressings changed per order. Some bloody and purulent drainage remains.
[2020-06-14 06:45] LABS: Bedside Glucose 121 mg/dL (70-110)
[2020-06-14] MEDS: Budesonide Respules 0.5 MG/2 ML AMPUL.NEB. INHALATION ×2 (07:50→19:19)
[2020-06-14 08:39] LABS: Absolute Lymphocyte Count 1.24 X10^3/uL (0.83-4.51); Absolute Neutrophil Count 12.6 X10^3/uL (2.0-7.7); Basophil# 0.09 X10^3/uL; Basophil% 0.6 % (0-1); Eosinophil# 0.15 X10^3/uL; Hematocrit 30.6 % (37-47); Hemoglobin 9.2 g/dL (12.0-15.0); Lymphocyte # 1.24 X10^3/ul (4.0); Lymphocyte % 8.1 % (19-41); Mean Corp Hgb Conc 30.1 g/dL (32-36); Mean Corpuscular Hgb 26.3 pg (27.0-32.0); Mean Corpuscular Volume 87.4 fL (81-99); Mean Platelet Vol. 9.7 fl (6.2-12.0); Monocyte# 0.89 X10^3/uL; Monocyte% 5.8 % (0-10); NRBC Flagged by Analyzer 0 % (0-5); Neutrophil # 12.61 X10^3/uL (2.7-7.7); Neutrophil % 82.6 % (47-70); Platelet Count 309 K/mm3 (150-450); RBC Distribution Width CV 19.9 % (11.6-14.6); RBC Distribution Width SD 64.2 fl (35.1-43.9); White Blood Count 15.3 K/mm3 (4.4-11.0)
[2020-06-14 08:55] LABS: Anion Gap 9 (5-15); BUN 64 mg/dL (7-18); BUN/Creat Ratio 49.2 RATIO (10-20); Calcium,Total 9.1 mg/dL (8.5-10.1); Chloride 119 mmol/L (98-107); EST Glomerular Filtration Rate 42 mL/min (>60); Est Glom Filt Rate - Afr Amer 51 mL/min (>60); Estimated Creatinine Clearance 24.79 ml/min; Glucose 122 mg/dL (74-106); Potassium 4.2 mmol/L (3.5-5.1); Sodium Level 146 mmol/L (136-145)
[2020-06-14] MEDS: cloNIDine HCl 0.2 MG Tablet PO ×2 (09:21→22:32)
[2020-06-14] MEDS: hydroCHLOROthiazide 25 MG Tablet PO (09:22)
[2020-06-14] MEDS: Calcium (Elemental) 500 MG Tablet PO ×2 (09:23→16:50)
[2020-06-14] MEDS: Losartan Potassium 50 MG Tablet PO ×2 (09:23→22:34)
[2020-06-14] MEDS: Polyethylene Glycol 3350 17 GM PACKET PO (09:24)
[2020-06-14] MEDS: amLODIPine 10 MG Tablet PO (09:24)
[2020-06-14] MEDS: Phenytoin Na 100 MG/2 ML Vial IV ×2 (09:25→22:40)
--- NOTE | 2020-06-14 10:47 | PN_ITS ---
Patient Problems: Active and Suspected Problems (Last Reviewed 06/10/20 @ 14:30 by Yessenia PRECIADO, PAHerbert) Acute anemia (Acute) GI bleed (Acute) Weakness (Acute) Debility (Acute) Subjective: Patient seen and examined. She had no complaints today. Patient was much more alert today. She was able to communicate well and says she had no complaints. Review of systems otherwise negative. She has remained hemodynamically stable. White cell count is trended down to 15 today. Sodium is 146. Hb is 9.2. Vitals/I&O's: Vital Signs Temp Pulse Resp BP Pulse Ox 98.2 F 94 20 H 168/66 H 97 06/14/20 09:18 06/14/20 09:18 06/14/20 09:18 06/14/20 09:18 06/14/20 09:18 Oxygen Delivery Method Room Air Weight: 113 lb 5.082 oz Body Mass Index (BMI) 22.1 Finger Stick Blood Glucose 167 Intake and Output for Last 24 Hours 06/12/20 06/13/20 06/14/20 23:59 23:59 23:59 Intake Total 1180 / 1180 1160 / 1160 300 / 300 Output Total 1955 / 1955 725 / 725 250 / 250 Balance -775 / -775 435 / 435 50 / 50 General: Alert, oriented x 3 HEENT: Atraumatic, PERRLA, EOMI, Normocephalic Oral: Dry Mucosa Neck: Supple, No JVD, Negative Carotid Bruits Lungs: Clear to auscultation, Normal air movement, No rhonchi, No wheeze, No rales Cardiovascular: Regular rate, Regular Rhythm, Normal S1, Normal S2, No murmurs Abdomen: Bowel Sounds Present, Soft, Non Tender Extremities: - - 1+ edema of lower extremities Skin: Ulcer/ Wound -both LEs wrapped in bandage Lymphatic: No Cervical, Supraclavicular, or Inguinal Adenopathy Neurological: Cranial nerves II-XII grossly intact, Neuro grossly intact, Motor Exam 5/5 strength throughout Psych/Mental Status: normal affect Microbiology Past 72 Hours 06/10/20 14:00 Wound - Leg, Right Gram Stain - Final 06/10/20 14:00 Wound - Leg, Right Wound Culture - Final Pseudomonas aeroginosa Streptococcus agalactiae (B) Meth. resistant Staph. aureus 06/10/20 14:00 Wound - Leg, Right Anaerobic Culture - Final Anaerobic cocci 06/10/20 15:00 Blood Culture (Wb) - Left Forearm Blood Culture - Preliminary No growth in 48 hours. 06/10/20 15:00 Blood Culture (Wb) - Anticubital Right Blood Culture - Preliminary No growth in 48 hours. Laboratory Results 06/13/20 12:33: POC Glucose 111 H 06/13/20 16:04: POC Glucose 135 H 06/13/20 21:53: POC Glucose 144 H 06/14/20 06:12: POC Glucose 121 H 06/14/20 07:24: WBC 15.3 H, RBC 3.50 L, Hgb 9.2 L, Hct 30.6 L, MCV 87.4, MCH 26.3 L, MCHC 30.1 L, RDW Std Deviation 64.2 H, RDW Coeff of Ceferino 19.9 H, Plt Count 309, MPV 9.7, Immature Gran % (Auto) 1.900 H, Neut % (Auto) 82.6 H, Lymph % (Auto) 8.1 L, [place] % (Auto) 5.8, Eos % (Auto) 1.0, Baso % (Auto) 0.6, Absolute Neuts (auto) 12.6 H, Absolute Lymphs (auto) 1.24, Nucleated RBC % 0 06/14/20 07:24: Sodium 146 H, Potassium 4.2, Chloride 119 H, Carbon Dioxide 18.0 L, Anion Gap 9, BUN 64 H, Creatinine 1.30 H, Estim Creat Clear Calc 24.79, Est GFR (MDRD) Af Amer 51 L, Est GFR (MDRD) Non-Af 42 L, BUN/Creatinine Ratio 49.2 H , Glucose 122 H, Calcium 9.1 Current Medications Acetaminophen (Acetaminophen 500 Mg Tablet) 1,000 mg PO Q8 [facility] Last Admin: 06/14/20 05:59 Dose: 1,000 mg Documented by: Acetaminophen (Acetaminophen 650 Mg Suppository) 650 mg RC Q6H PRN PRN PRN Reason: pain/fever Last Admin: 06/11/20 10:10 Dose: 650 mg Documented by: Amlodipine Besylate (Amlodipine 10 Mg Tablet) 10 mg PO DAILY [facility] Last Admin: 06/14/20 09:24 Dose: 10 mg Documented by: Atorvastatin Calcium (Atorvastatin Calcium 10 Mg Tablet) 10 mg PO QHS [facility] Last Admin: 06/13/20 21:51 Dose: 10 mg Documented by: Betamethasone Valerate (Betamethasone Valerate 1 Tube) 1 applic TOPICAL DAILY [facility] Last Admin: 06/14/20 09:26 Dose: 1 applicatio Documented by: Budesonide (Budesonide Respules 0.5 Mg/2 Ml Ampul.Neb.) 0.5 mg INHALATION Q12H.RT [facility] Last Admin: 06/12/20 20:01 Dose: 0.5 mg Documented by: Calamine/Phenol (Menthol/Lanolin/Calamine/Znox 113 Gm Tube) 1 applic TOPICAL TID [facility]; Protocol Last Admin: 06/14/20 05:40 Dose: 1 applicatio Documented by: Calcium Carbonate (Calcium (Elemental) 500 Mg Tablet) 500 mg PO BIDCM [facility] Last Admin: 06/14/20 09:23 Dose: 500 mg Documented by: Cholecalciferol (Cholecalciferol (Vit D3) 1,000 Unit (25mcg)) [facility] Last Admin: 06/14/20 09:22 Dose: 1,000 unit Documented by: Clonidine (Clonidine Hcl 0.2 Mg Tablet) 0.2 mg PO BID [facility] Last Admin: 06/14/20 09:21 Dose: 0.2 mg Documented by: Hydralazine HCl (Hydralazine 50 Mg Tablet) 100 mg PO TID [facility] Last Admin: 06/14/20 06:00 Dose: 100 mg Documented by: Hydralazine HCl (Hydralazine 20 Mg/Ml Vial) 10 mg IV Q6H PRN PRN PRN Reason: BLOOD PRESSURE ELEVATION Last Admin: 06/12/20 01:55 Dose: 10 mg Documented by: Hydrochlorothiazide (Hydrochlorothiazide 25 Mg Tablet) 25 mg PO DAILY [facility] Last Admin: 06/14/20 09:22 Dose: 25 mg Documented by: Vancomycin IV Pharmacy to Dose (1 ea/ Sodium Chloride) 500 mls @ 250 mls/hr IV X1 PRN; Protocol PRN Reason: Rx to Dose Pantoprazole Sodium 40 mg/ (Sodium Chloride) 110 mls @ 330 mls/hr IV Q12 [facility] Last Admin: 06/14/20 09:30 Dose: 330 mls/hr Documented by: Vancomycin HCl () 500 mg in 100 mls @ 100 mls/hr IV Q24H [facility] Last Infusion: 06/13/20 18:10 Dose: Infused Documented by: Piperacillin Sod/Tazobactam (Sod 3.375 gm/ Sodium Chloride) 50 mls @ 12.5 mls/hr IV Q8 [facility] Last Infusion: 06/14/20 09:46 Dose: Infused Documented by: Insulin Human Lispro (Insulin Lispro 100 Unit/Ml Insuln.Pen) 0 unit SC ACHS [facility]; Protocol Last Admin: 06/14/20 06:13 Dose: Not Given Documented by: Losartan Potassium (Losartan Potassium 50 Mg Tablet) 50 mg PO BID [facility] Last Admin: 06/14/20 09:23 Dose: 50 mg Documented by: Morphine Sulfate (Morphine 2 Mg/Ml Syringe) 2 mg IV Q3H PRN PRN PRN Reason: Pain Score 1-10 Ondansetron HCl (Ondansetron 4 Mg/2 Ml Vial) 4 mg IV Q8H PRN PRN PRN Reason: NAUSEA/VOMITING Phenytoin Sodium (Phenytoin Na 100 Mg/2 Ml Vial) 100 mg IV BID [facility] Last Admin: 06/14/20 09:25 Dose: 100 mg Documented by: Polyethylene Glycol (Polyethylene Glycol 3350 17 Gm Packet) 17 gm PO DAILY [facility] Last Admin: 06/14/20 09:24 Dose: 17 gm Documented by: Sodium Chloride (0.9% Saline Lock 10 Ml Syringe) 10 - 40 ml IV UD PRN PRN Reason: SALINE FLUSH Last Admin: 06/12/20 06:59 Dose: 10 ml Documented by: Sucralfate (Sucralfate 1 Gm Tablet) 1 gm PO TIDAC [facility] Last Admin: 06/14/20 06:00 Dose: 1 gm Documented by: STROKE Vital Signs/Narrative: Vital Signs Temp Pulse Resp BP Pulse Ox 06/14/20 09:18 98.2 F 94 20 H 168/66 H 97 06/14/20 07:48 87 Medical Necessity - Tobacco Use Smoking Status: Never smoker Assessment/Plan All Active Problems (Last Reviewed 06/10/20 @ 14:30 by Yessenia PRECIADO, PAHerbert) Acute anemia (Acute) GI bleed (Acute) Weakness (Acute) Debility (Acute) Hx of flexible sigmoidoscopy (Acute) History of surgical removal of skin lesion (Acute) Hx of knee surgery (Acute) History of bilateral knee replacement (Acute) History of back surgery (Acute) History of rectal abscess (Acute) Hx of biopsy (Acute) History of esophagogastroduodenoscopy (EGD) (Acute) Hx of colonoscopy (Acute) Hx of cataract surgery (Acute) Dilantin toxicity (Acute) Femur fracture (Acute) Hyponatremia (Acute) Fall (Acute) Closed right hip fracture (Acute) History of rectal abscess (Resolved) #Sepsis due to Bilateral lower extremity cellulitis and leg wounds * wbc continues to trend downwards, to 15 today * wound cultures growing Pseudomonas aeruginosa and strep group B as well as staph aureus. Blood cultures are negative. * on IV vancomycin and zosyn. * PT/OT on board. * fall precautions * * #Anemia * s/p 2 units of PRBCs * Hb today is 8.6 * Have previous EGD in 2017 which showed dark discoloration in the stomach with concerns for melanosis coli. Duodenum was normal. Colonoscopy had poor bowel prep. * EGD done during this admission showed normal esophagus, stomach and duodenum * Iron panel showed iron of 14 with low TIBC and iron saturation of 6.3 with ferritin being low normal at 116. * patient and her refused colonoscopy * Continue sucralfate and IV pantoprazole. * #CKD stage III: * Creatinine is 1.3 * DC IF * #Nonamion gap metabolic acidosis * bicarb remains 18 * continue to monitor. * will start on bicarb tablets * #Hypertension: On amlodipine and losartan. #Hyperlipidemia: On statin # Diabetes mellitus: On insulin sliding scale. Accu-Cheks AC at bedtime. #History of seizure disorder: On phenytoin #Hyperlipidemia: On statin DVT Prophylaxis: SCDs CODE STATUS: DNR CCA no intubation * Disposition: * She was denied pre-CERT by insurance for skilled facility. I did do a peer to peer yesterday but the denial was upheld. Patient is aspect willing to take her home with home health care as he is one of the sons is taking FMLA to come to help care for her. For likely discharge tomorrow. Inpatient E&M: 98750 Subs Hosp L2
--- NOTE | 2020-06-14 11:07 | CM.UR ---
Faxed order for home care to [facility] at this time. Order for SN, PT and SW. Green sheet placed on chart. Chris Dunham RN, CCM.
--- NOTE | 2020-06-14 12:09 | CASEMGMT ---
SW spoke w/pt in room, left with her a packet of resources including a Medicaid application, private hire aides, and mental health agencies. SW let pt know that this information may be helpful and to pass on to her family, she states she will do so. ARSH Machado
[2020-06-14] MEDS: Insulin Lispro 100 UNIT/ML INSULN.PEN SC ×3 (12:44→22:28)
[2020-06-14 12:45] LABS: Bedside Glucose 211 mg/dL (70-110)
[2020-06-14] MEDS: hydrALAZINE 20 MG/ML Vial 10 MG IV (13:24)
[2020-06-14 16:56] LABS: Bedside Glucose 170 mg/dL (70-110)
[2020-06-14] MEDS: Vancomycin IV 500 MG/100 ML BAG 100 MG IV (17:53)
[2020-06-14] MEDS: Atorvastatin Calcium 10 MG Tablet PO (22:33)
[2020-06-14] MEDS: 0.9% Saline Lock 10 ML Syringe IV (22:40)
[2020-06-14 22:41] LABS: Bedside Glucose 177 mg/dL (70-110)
[2020-06-15] VITALS (16 sets, daily range): BP systolic 141–178; BP diastolic 45–74; PULSE 67–83; RESP 16–20; TEMP 36.6–37.2; O2SAT 95–97
[2020-06-15] MEDS: Menthol/Lanolin/Calamine/Znox 113 GM Tube 1 APPLIC TOPICAL ×3 (05:12→22:42)
[2020-06-15] MEDS: hydrALAZINE 20 MG/ML Vial 10 MG IV (05:18)
[2020-06-15] MEDS: 0.9% Saline Lock 10 ML Syringe IV ×2 (05:19→09:46)
[2020-06-15 05:40] LABS: Absolute Lymphocyte Count 1.27 X10^3/uL (0.83-4.51); Absolute Neutrophil Count 10.7 X10^3/uL (2.0-7.7); Basophil# 0.08 X10^3/uL; Basophil% 0.6 % (0-1); Differential Indicated SCAN CRITERIA MET; Eosinophil# 0.25 X10^3/uL; Eosinophils% 1.9 % (0-5); Hematocrit 30.2 % (37-47); Hemoglobin 9.1 g/dL (12.0-15.0); Lymphocyte # 1.27 X10^3/ul (4.0); Lymphocyte % 9.5 % (19-41); Mean Corp Hgb Conc 30.1 g/dL (32-36); Mean Corpuscular Hgb 26.2 pg (27.0-32.0); Mean Platelet Vol. 9.3 fl (6.2-12.0); Monocyte# 0.92 X10^3/uL; Monocyte% 6.9 % (0-10); NRBC Flagged by Analyzer 0 % (0-5); Neutrophil # 10.67 X10^3/uL (2.7-7.7); Neutrophil % 79.4 % (47-70); POSITIVE MORPHOLOGY YES; Platelet Count 300 K/mm3 (150-450); RBC Distribution Width CV 20.1 % (11.6-14.6); Red Blood Count 3.47 M/mm3 (4.2-5.4); White Blood Count 13.4 K/mm3 (4.4-11.0)
[2020-06-15 05:59] LABS: Anion Gap 8 (5-15); BUN 57 mg/dL (7-18); BUN/Creat Ratio 44.5 RATIO (10-20); Calcium,Total 9.1 mg/dL (8.5-10.1); Chloride 122 mmol/L (98-107); Creatinine, Serum 1.28 mg/dL (0.55-1.02); EST Glomerular Filtration Rate 43 mL/min (>60); Est Glom Filt Rate - Afr Amer 52 mL/min (>60); Estimated Creatinine Clearance 25.18 ml/min; Glucose 128 mg/dL (74-106); Potassium 4.3 mmol/L (3.5-5.1); Sodium Level 148 mmol/L (136-145)
[2020-06-15] MEDS: Acetaminophen 500 MG Tablet 1000 MG PO ×3 (06:11→22:39)
[2020-06-15] MEDS: hydrALAZINE 50 MG Tablet 100 MG PO ×3 (06:12→22:39)
[2020-06-15] MEDS: Sucralfate 1 GM Tablet PO ×3 (06:12→16:55)
[2020-06-15 06:31] LABS: Bedside Glucose 140 mg/dL (70-110)
[2020-06-15] MEDS: Calcium (Elemental) 500 MG Tablet PO ×2 (08:42→16:56)
[2020-06-15] MEDS: Losartan Potassium 50 MG Tablet PO ×2 (09:45→22:41)
[2020-06-15] MEDS: cloNIDine HCl 0.2 MG Tablet PO ×2 (09:45→22:39)
[2020-06-15] MEDS: amLODIPine 10 MG Tablet PO (09:46)
[2020-06-15] MEDS: Phenytoin Na 100 MG/2 ML Vial IV ×2 (09:46→22:38)
[2020-06-15] MEDS: hydroCHLOROthiazide 25 MG Tablet PO (09:47)
[2020-06-15] MEDS: Polyethylene Glycol 3350 17 GM PACKET PO (09:47)
[2020-06-15] MEDS: Insulin Lispro 100 UNIT/ML INSULN.PEN SC ×2 (11:24→22:54)
[2020-06-15 11:31] LABS: Bedside Glucose 208 mg/dL (70-110)
[2020-06-15 12:41] LABS: Sodium Level 148 mmol/L (136-145)
--- NOTE | 2020-06-15 15:21 | PCM.PN.HOSP ---
Patient Problems: Active and Suspected Problems (Last Reviewed 06/10/20 @ 14:30 by Yessenia PRECIADO, PAHerbert) Acute anemia (Acute) GI bleed (Acute) Weakness (Acute) Debility (Acute) Subjective: Patient seen and examined. She had no complaints today. She said she wanted to go home as she missed her family. Review of systems is otherwise negative. Sodium has increased to 148 today. Wbc is down to 13. Vitals/I&O's: Vital Signs Temp Pulse Resp BP Pulse Ox 98.9 F 74 18 166/52 H 96 06/15/20 14:53 06/15/20 14:53 06/15/20 14:53 06/15/20 14:53 06/15/20 14:53 Oxygen Delivery Method Room Air Weight: 113 lb 5.082 oz Body Mass Index (BMI) 22.1 Finger Stick Blood Glucose 167 Intake and Output for Last 24 Hours 06/13/20 06/14/20 06/16/20 23:59 23:59 00:59 Intake Total 1160 / 1160 1220 / 1220 735 / 735 Output Total 725 / 725 725 / 725 650 / 650 Balance 435 / 435 495 / 495 85 / 85 General: Alert, oriented x 3 HEENT: Atraumatic, PERRLA, EOMI, Normocephalic Oral: Dry Mucosa Neck: Supple, No JVD, Negative Carotid Bruits Lungs: Clear to auscultation, Normal air movement, No rhonchi, No wheeze, No rales Cardiovascular: Regular rate, Regular Rhythm, Normal S1, Normal S2, No murmurs Abdomen: Bowel Sounds Present, Soft, Non Tender Extremities: - - 1+ edema of lower extremities Skin: Ulcer/ Wound -both LEs wrapped in bandage Lymphatic: No Cervical, Supraclavicular, or Inguinal Adenopathy Neurological: Cranial nerves II-XII grossly intact, Neuro grossly intact, Motor Exam 5/5 strength throughout Psych/Mental Status: normal affect Microbiology Past 72 Hours 06/10/20 14:00 Wound - Leg, Right Gram Stain - Final 06/10/20 14:00 Wound - Leg, Right Wound Culture - Final Pseudomonas aeroginosa Streptococcus agalactiae (B) Meth. resistant Staph. aureus 06/10/20 14:00 Wound - Leg, Right Anaerobic Culture - Final Anaerobic cocci 06/10/20 15:00 Blood Culture (Wb) - Left Forearm Blood Culture - Preliminary No growth in 48 hours. 06/10/20 15:00 Blood Culture (Wb) - Anticubital Right Blood Culture - Preliminary No growth in 48 hours. Laboratory Results 06/14/20 16:47: POC Glucose 170 H 06/14/20 22:27: POC Glucose 177 H 06/15/20 05:28: WBC 13.4 H, RBC 3.47 L, Hgb 9.1 L, Hct 30.2 L, MCV 87.0, MCH 26.2 L, MCHC 30.1 L, RDW Std Deviation 64.0 H, RDW Coeff of Ceferino 20.1 H, Plt Count 300, MPV 9.3, Immature Gran % (Auto) 1.700 H, Neut % (Auto) 79.4 H, Lymph % (Auto) 9.5 L, [place] % (Auto) 6.9, Eos % (Auto) 1.9, Baso % (Auto) 0.6, Absolute Neuts (auto) 10.7 H, Absolute Lymphs (auto) 1.27, Nucleated RBC % 0 06/15/20 05:28: Sodium 148 H, Potassium 4.3, Chloride 122 H, Carbon Dioxide 18.0 L, Anion Gap 8, BUN 57 H, Creatinine 1.28 H, Estim Creat Clear Calc 25.18, Est GFR (MDRD) Af Amer 52 L, Est GFR (MDRD) Non-Af 43 L, BUN/Creatinine Ratio 44.5 H, Glucose 128 H, Calcium 9.1 06/15/20 06:15: POC Glucose 140 H 06/15/20 11:22: POC Glucose 208 H 06/15/20 12:21: Sodium 148 H Current Medications Acetaminophen (Acetaminophen 500 Mg Tablet) 1,000 mg PO Q8 [facility] Last Admin: 06/15/20 14:45 Dose: 1,000 mg Documented by: Acetaminophen (Acetaminophen 650 Mg Suppository) 650 mg RC Q6H PRN PRN PRN Reason: pain/fever Last Admin: 06/11/20 10:10 Dose: 650 mg Documented by: Amlodipine Besylate (Amlodipine 10 Mg Tablet) 10 mg PO DAILY [facility] Last Admin: 06/15/20 09:46 Dose: 10 mg Documented by: Atorvastatin Calcium (Atorvastatin Calcium 10 Mg Tablet) 10 mg PO QHS [facility] Last Admin: 06/14/20 22:33 Dose: 10 mg Documented by: Betamethasone Valerate (Betamethasone Valerate 1 Tube) 1 applic TOPICAL DAILY [facility] Last Admin: 06/15/20 09:47 Dose: 1 applicatio Documented by: Budesonide (Budesonide Respules 0.5 Mg/2 Ml Ampul.Neb.) 0.5 mg INHALATION Q12H.RT [facility] Last Admin: 06/14/20 19:19 Dose: 0.5 mg Documented by: Calamine/Phenol (Menthol/Lanolin/Calamine/Znox 113 Gm Tube) 1 applic TOPICAL TID [facility]; Protocol Last Admin: 06/15/20 14:49 Dose: 1 applicatio Documented by: Calcium Carbonate (Cal[facility] (Elemental) 500 Mg [facility]t) [facility] Admin: 06/15/20 08:42 Dose: 500 mg Documented by: Cholecalciferol (Cholecalciferol (Vit D3) 1,000 Unit (25mcg)) [facility] Last Admin: 06/15/20 08:42 Dose: 1,000 unit Documented by: Clonidine (Clonidine Hcl 0.2 Mg Tablet) 0.2 mg PO BID [facility] Last Admin: 06/15/20 09:45 Dose: 0.2 mg Documented by: Hydralazine HCl (Hydralazine 50 Mg Tablet) 100 mg PO TID [facility] Last Admin: 06/15/20 14:46 Dose: 100 mg Documented by: Hydralazine HCl (Hydralazine 20 Mg/Ml Vial) 10 mg IV Q6H PRN PRN PRN Reason: BLOOD PRESSURE ELEVATION Last Admin: 06/15/20 05:18 Dose: 10 mg Documented by: Hydrochlorothiazide (Hydrochlorothiazide 25 Mg Tablet) 25 mg PO DAILY [facility] Last Admin: 06/15/20 09:47 Dose: 25 mg Documented by: Vancomycin IV Pharmacy to Dose (1 ea/ Sodium Chloride) 500 mls @ 250 mls/hr IV X1 PRN; Protocol PRN Reason: Rx to Dose Pantoprazole Sodium 40 mg/ (Sodium Chloride) 110 mls @ 330 mls/hr IV Q12 [facility] Last Infusion: 06/15/20 10:08 Dose: Infused Documented by: Vancomycin HCl () 500 mg in 100 mls @ 100 mls/hr IV Q24H [facility] Last Infusion: 06/14/20 18:53 Dose: Infused Documented by: Piperacillin Sod/Tazobactam (Sod 3.375 gm/ Sodium Chloride) 50 mls @ 12.5 mls/hr IV Q8 [facility] Last Admin: 06/15/20 14:42 Dose: 12.5 mls/hr Documented by: Dextrose () 1,000 mls @ 100 mls/hr IV .Q10H [facility] Stop: 06/15/20 17:39 Last Admin: 06/15/20 08:41 Dose: 100 mls/hr Documented by: Insulin Human Lispro (Insulin Lispro 100 Unit/Ml Insuln.Pen) 0 unit SC ACHS [facility]; Protocol Last Admin: 06/15/20 11:24 Dose: 4 u Documented by: Losartan Potassium (Losartan Potassium 50 Mg Tablet) 50 mg PO BID [facility] Last Admin: 06/15/20 09:45 Dose: 50 mg Documented by: Morphine Sulfate (Morphine 2 Mg/Ml Syringe) 2 mg IV Q3H PRN PRN PRN Reason: Pain Score 1-10 Ondansetron HCl (Ondansetron 4 Mg/2 Ml Vial) 4 mg IV Q8H PRN PRN PRN Reason: NAUSEA/VOMITING Phenytoin Sodium (Phenytoin Na 100 Mg/2 Ml Vial) 100 mg IV BID [facility] Last Admin: 06/15/20 09:46 Dose: 100 mg Documented by: Polyethylene Glycol (Polyethylene Glycol 3350 17 Gm Packet) 17 gm PO DAILY [facility] Last Admin: 06/15/20 09:47 Dose: 17 gm Documented by: Sodium Chloride (0.9% Saline Lock 10 Ml Syringe) 10 - 40 ml IV UD PRN PRN Reason: SALINE FLUSH Last Admin: 06/15/20 09:46 Dose: 20 ml Documented by: Sucralfate (Sucralfate 1 Gm Tablet) 1 gm PO TIDAC [facility] Last Admin: 06/15/20 11:24 Dose: 1 gm Documented by: STROKE Vital Signs/Narrative: Vital Signs Temp Pulse Resp BP Pulse Ox 06/15/20 14:53 98.9 F 74 18 166/52 H 96 06/15/20 14:46 74 166/52 H 06/15/20 11:39 67 06/15/20 11:26 97.8 F 70 18 141/45 H 96 Medical Necessity - Tobacco Use Smoking Status: Never smoker Assessment/Plan All Active Problems (Last Reviewed 06/10/20 @ 14:30 by Yessenia PRECIADO, PA-C) Acute anemia (Acute) GI bleed (Acute) Weakness (Acute) Debility (Acute) Hx of flexible sigmoidoscopy (Acute) History of surgical removal of skin lesion (Acute) Hx of knee surgery (Acute) History of bilateral knee replacement (Acute) History of back surgery (Acute) History of rectal abscess (Acute) Hx of biopsy (Acute) History of esophagogastroduodenoscopy (EGD) (Acute) Hx of colonoscopy (Acute) Hx of cataract surgery (Acute) Dilantin toxicity (Acute) Femur fracture (Acute) Hyponatremia (Acute) Fall (Acute) Closed right hip fracture (Acute) History of rectal abscess (Resolved) #Sepsis due to Bilateral lower extremity cellulitis and leg wounds wbc continues to trend downwards, to 13 today wound cultures growing Pseudomonas aeruginosa and strep group B as well as staph aureus. Blood cultures are negative. on IV vancomycin and zosyn. PT/OT on board. fall precautions #Anemia s/p 2 units of PRBCs Hb today is 9.1 EGD done during this admission showed normal esophagus, stomach and duodenum Iron panel showed iron of 14 with low TIBC and iron saturation of 6.3 with ferritin being low normal at 116. patient and her refused colonoscopy Continue sucralfate; switch to PO pantoprazole #Hypernatremia sodium has trended up to 148 today. I think it is likely due to dehydration give IV D5W at 75cc/hr to bring sodium down. repeat sodium after starting fluids today was still 148. #CKD stage III: stable #Nonamion gap metabolic acidosis bicarb remains 18 continue to monitor. #Hypertension: On amlodipine and losartan. #Hyperlipidemia: On statin # Diabetes mellitus: On insulin sliding scale. Accu-Cheks AC at bedtime. #History of seizure disorder: On phenytoin #Hyperlipidemia: On statin DVT Prophylaxis: SCDs CODE STATUS: DNR CCA no intubation Disposition: for discharge home tomorrow with home health once sodium is normal and wbc has trended down some more. Inpatient E&M: 06068 Subs Hosp L2
[2020-06-15 17:15] LABS: Bedside Glucose 144 mg/dL (70-110)
[2020-06-15] MEDS: Vancomycin IV 500 MG/100 ML BAG 100 MG IV (18:23)
[2020-06-15] MEDS: Budesonide Respules 0.5 MG/2 ML AMPUL.NEB. INHALATION (19:29)
[2020-06-15] MEDS: Atorvastatin Calcium 10 MG Tablet PO (22:42)
[2020-06-15 23:06] LABS: Bedside Glucose 151 mg/dL (70-110)
[2020-06-16] VITALS (10 sets, daily range): BP systolic 160–192; BP diastolic 54–71; PULSE 75–148; RESP 18–20; TEMP 37–37.6; O2SAT 93–97
[2020-06-16] MEDS: hydrALAZINE 50 MG Tablet 100 MG PO (05:00)
[2020-06-16] MEDS: Acetaminophen 500 MG Tablet 1000 MG PO (05:00)
[2020-06-16] MEDS: Menthol/Lanolin/Calamine/Znox 113 GM Tube 1 APPLIC TOPICAL (05:14)
[2020-06-16 06:32] LABS: Absolute Lymphocyte Count 1.68 X10^3/uL (0.83-4.51); Absolute Neutrophil Count 12.1 X10^3/uL (2.0-7.7); Basophil# 0.09 X10^3/uL; Basophil% 0.6 % (0-1); Eosinophil# 0.52 X10^3/uL; Eosinophils% 3.4 % (0-5); Hematocrit 29.7 % (37-47); Lymphocyte # 1.68 X10^3/ul (4.0); Lymphocyte % 10.9 % (19-41); Mean Corp Hgb Conc 30.3 g/dL (32-36); Mean Corpuscular Hgb 26.6 pg (27.0-32.0); Mean Corpuscular Volume 87.9 fL (81-99); Monocyte% 5.2 % (0-10); NRBC Flagged by Analyzer 0 % (0-5); Neutrophil # 12.08 X10^3/uL (2.7-7.7); Neutrophil % 78.7 % (47-70); Platelet Count 313 K/mm3 (150-450); RBC Distribution Width CV 19.7 % (11.6-14.6); RBC Distribution Width SD 63.3 fl (35.1-43.9); Red Blood Count 3.38 M/mm3 (4.2-5.4); White Blood Count 15.4 K/mm3 (4.4-11.0)
[2020-06-16 06:45] LABS: Bedside Glucose 128 mg/dL (70-110)
[2020-06-16 06:57] LABS: Anion Gap 8 (5-15); BUN 51 mg/dL (7-18); BUN/Creat Ratio 40.5 RATIO (10-20); Calcium,Total 8.8 mg/dL (8.5-10.1); Chloride 120 mmol/L (98-107); Creatinine, Serum 1.26 mg/dL (0.55-1.02); EST Glomerular Filtration Rate 43 mL/min (>60); Est Glom Filt Rate - Afr Amer 53 mL/min (>60); Estimated Creatinine Clearance 25.58 ml/min; Glucose 126 mg/dL (74-106); Sodium Level 146 mmol/L (136-145)
[2020-06-16] MEDS: Sucralfate 1 GM Tablet PO ×2 (06:58→11:44)
[2020-06-16] MEDS: Budesonide Respules 0.5 MG/2 ML AMPUL.NEB. INHALATION (07:28)
[2020-06-16] MEDS: Calcium (Elemental) 500 MG Tablet PO (08:18)
--- NOTE | 2020-06-16 09:03 | DCINST_ITS ---
- Discharge Diagnoses Current Active Problems: Current Active and Chronic Problems (Last Reviewed 06/10/20 @ 14:30 by Yessenia PRECIADO PAHerbert) Acute anemia (Acute) GI bleed (Acute) Weakness (Acute) Type II diabetes mellitus (Chronic) Debility (Acute) Hemiparesis affecting dominant side as late effect of cerebrovascular accident (Chronic) HTN (hypertension) (Chronic) Asthma (Chronic) CVA (cerebral vascular accident) (Chronic) HLD (hyperlipidemia) (Chronic) Chronic renal failure, stage 3 (moderate) (Chronic) Elevated parathyroid hormone (Chronic) Allergic rhinitis (Chronic) GERD (gastroesophageal reflux disease) (Chronic) Seizure disorder (Chronic) You will use the following diet at home:: Calorie/Carbohydrate Controlled (specify 1200, 1400, etc) - 1800 ZHOU. Your food should be the consistency of: Regular Discharge Activity: Return to Normal Activity Weight Bearing Status: Weight bearing as tolerated Call your doctor if you observe: Fever of 101 or Higher, Shortness of breath, Dizziness, Fainting spells, Chest pain, Increased palpitations (irregular heartbeat), Uncontrolled pain Allergies/Adverse Reactions: Allergies almond oil Allergy (Verified 11/02/19 15:53) Hives Medications to take at Discharge Amlodipine [Norvasc] 1 tab PO DAILY 09/26/16 Fluticasone Propionate [Flovent Hfa] 1 puff IH BID 09/26/16 Losartan Potassium 1 tab PO BID 09/26/16 Simvastatin [Zocor] 1 tab PO QHS 09/26/16 Calcium (Elemental) [Os-Zhou 500] 500 mg PO BIDCM 01/03/17 Cholecalciferol (VIT D3) [Vitamin D3] 1,000 unit PO DAILYCM 01/03/17 Clonidine HCl [Catapres] 0.2 mg PO BID 01/03/17 Clopidogrel Bisulfate [Plavix] 75 mg PO DAILY 01/03/17 hydrALAZINE [Apresoline] 100 mg PO TID 01/03/17 Phenytoin Na [Dilantin] 200 mg PO DAILYCM #30 01/05/17 Acetaminophen [Tylenol] 1,000 mg PO Q8 06/10/20 Hydrochlorothiazide [Hctz] 25 mg PO DAILY 06/10/20 Iron Polysaccharide Complex [Ferrex 150] 150 mg PO BIDCM 06/10/20 Mometasone Furoate 1 applic TP DAILY 06/10/20 Pantoprazole Sodium [Protonix] 20 mg PO DAILY 06/10/20 Polyethylene Glycol 3350 [Miralax] 17 gm PO DAILY 06/10/20 Sucralfate [Carafate] 1 gm PO TID 06/10/20 Doxycycline 100 mg PO BID #10 cap 06/16/20 Levofloxacin [Levaquin] 750 mg PO QODAY #3 tab 06/16/20 The following prescriptions were given: Doxycycline 100 mg PO BID #10 cap Transmission Status: Pending to [facility]/pharmacy #[id number] Levofloxacin [Levaquin] 750 mg PO QODAY #3 tab Transmission Status: Pending to [facility]/pharmacy #[id number] Primary Care Physician: Leonardo Bear III, MD [Primary Care Provider] - Please follow up with your Primary Care Physician in: 1 WEEK. Test Results: Test results from this visit will be discussed in further detail at your follow- up appointment, if applicable. Please Follow Up With: Joann Cook NP-C
--- NOTE | 2020-06-16 10:03 | PHA.DC.MR ---
Pharmacy Service has performed discharge medication reconciliation for this patient. The patient's discharge medication list was reviewed for discrepancies and discrepancies were resolved. Home Medications Amlodipine [Norvasc] 1 tab PO DAILY 09/26/16 Fluticasone Propionate [Flovent Hfa] 1 puff IH BID 09/26/16 Losartan Potassium 1 tab PO BID 09/26/16 Simvastatin [Zocor] 1 tab PO QHS 09/26/16 Calcium (Elemental) [Os-Denny 500] 500 mg PO BIDCM 01/03/17 Cholecalciferol (VIT D3) [Vitamin D3] 1,000 unit PO DAILYCM 01/03/17 Clonidine HCl [Catapres] 0.2 mg PO BID 01/03/17 Clopidogrel Bisulfate [Plavix] 75 mg PO DAILY 01/03/17 hydrALAZINE [Apresoline] 100 mg PO TID 01/03/17 Phenytoin Na [Dilantin] 200 mg PO DAILYCM #30 01/05/17 Acetaminophen [Tylenol] 1,000 mg PO Q8 06/10/20 Hydrochlorothiazide [Hctz] 25 mg PO DAILY 06/10/20 Iron Polysaccharide Complex [Ferrex 150] 150 mg PO BIDCM 06/10/20 Mometasone Furoate 1 applic TP DAILY 06/10/20 Pantoprazole Sodium [Protonix] 20 mg PO DAILY 06/10/20 Polyethylene Glycol 3350 [Miralax] 17 gm PO DAILY 06/10/20 Sucralfate [Carafate] 1 gm PO TID 06/10/20 Doxycycline 100 mg PO BID #10 cap 06/16/20 Levofloxacin [Levaquin] 750 mg PO QODAY #3 tab 06/16/20
[2020-06-16] MEDS: Phenytoin Na 100 MG/2 ML Vial IV (10:15)
[2020-06-16] MEDS: Losartan Potassium 50 MG Tablet PO (10:15)
[2020-06-16] MEDS: amLODIPine 10 MG Tablet PO (10:15)
[2020-06-16] MEDS: Pantoprazole Sodium 40 MG Tablet PO (10:15)
[2020-06-16] MEDS: cloNIDine HCl 0.2 MG Tablet PO (10:15)
[2020-06-16] MEDS: hydroCHLOROthiazide 25 MG Tablet PO (10:15)
--- NOTE | 2020-06-16 10:15 | CASEMGMT ---
KRYSTYNA CHOW received call back from [facility]. [facility] is able to accept the patient. KRYSTYNA CM to updated regarding C setup with [facility]. CM to continue to follow this patient and plan for safe discharge.
--- NOTE | 2020-06-16 10:20 | NURSING ---
wound photo:left foot
--- NOTE | 2020-06-16 10:21 | NURSING ---
wound photo: left anterior ankle
--- NOTE | 2020-06-16 10:22 | NURSING ---
wound photo: left lateral foot
--- NOTE | 2020-06-16 10:23 | NURSING ---
wound photo: left foot
--- NOTE | 2020-06-16 10:24 | NURSING ---
wound photo: left medial foot
--- NOTE | 2020-06-16 10:26 | NURSING ---
wound photo: left heel
--- NOTE | 2020-06-16 10:28 | NURSING ---
wound photo: left medial lower leg
--- NOTE | 2020-06-16 10:29 | NURSING ---
wound photo: right leg
--- NOTE | 2020-06-16 10:30 | NURSING ---
wound photo: right lateral foot
--- NOTE | 2020-06-16 10:31 | NURSING ---
wound photo: right heel
[2020-06-16 11:56] LABS: Bedside Glucose 134 mg/dL (70-110)
--- NOTE | 2020-06-16 13:28 | DS.PCM_ITS ---
Discharge Date and Diagnosis Date of Admission: 06/13/20 Date of Discharge: 06/16/20 - Primary Discharge Diagnosis Acute Problems: Active Problems (Last Reviewed 06/10/20 @ 14:30 by YUSUF FosterC) #1 polymicrobial acute bilateral lower extremity cellulitis/infected chronic leg wounds. #2 sepsis. #3 acute on chronic iron deficiency anemia, no evidence of active GI bleed. #4 debility/functional decline. 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 No demonstrated acute cardiopulmonary process. Electronically Signed: Paul Cabrera MD at 11:28 EST Tel , Service support , Foot X-Ray 06/10/20 09:51 IMPRESSION: Osteoporosis. Mild degenerative changes are noted in the tarsometatarsal articulations. There is no definite bone erosion to suggest osteomyelitis. Electronically Signed: Paul Cabrera MD at 11:31 EST Tel , Service support , Tibia/Fibula X-Ray 06/10/20 09:51 IMPRESSION: Osteopenia of the tibia and fibula. There is no acute bone abnormality. Electronically Signed: Paul Cabrera MD at 11:35 EST Tel , Service support , Foot X-Ray 06/10/20 10:53 IMPRESSION: Osteoporosis. Mild degenerative changes are noted in the tarsometatarsal articulations. There is no definite bone erosion to suggest osteomyelitis. Electronically Signed: Paul Cabrera MD at 11:25 EST Tel , Service support , Consultations 06/10/20 13:38 Consult: Onc/Wound/journeyman sheet metal worker Routine Comment: Procedures: Blood transfusion, EGD Summary of Care Provided: Patient seen and examined on the day of discharge and appeared to be stable to be discharged home. Patient was insisting to go home. She had no specific complaints. Apart from elevated blood pressure, other vital signs are stable, was afebrile. The patient is a 79 year old F presented to the emergency room because of weakness, bilateral lower extremity increasing redness and swelling as well as mild shortness of breath and she was found to have sepsis secondary to acute bilateral lower extremity cellulitis with chronic bilateral leg wounds which seemed to be infected. On admission, she did have evidence of sepsis. She was treated with IV vancomycin and Zosyn. Venous Doppler of both legs showed no evidence of DVT. Blood culture showed no growth in 5 days. Wound culture revealed Pseudomonas aeruginosa, MRSA and Streptococcus agalactiae. COVID-19 antigen was negative. Patient was found to have acute on chronic iron deficiency anemia. Stool for occult blood was negative. Upper EGD was done and showed normal esophagus, normal stomach and without evidence of active upper GI bleed. She received a total of 2 units of packed RBCs. Lowest hemoglobin was 6.6 g/dL. After transfusion, discharge hemoglobin was 9 g/dL. She was kept on iron supplement. She remained afebrile and her vital signs remained stable except blood pressure was on the higher side. Patient discharged home with home health in a stable medical condition, was discharged on doxycycline and Levaquin renally adjusted dose to complete total of 10 days of treatment, continued on her previous home medications without any changes including Protonix and Carafate, continued on iron supplement, recommended follow-up with PCP in 1 week. - Physical Exam Vitals/I&O's: Vital Signs Temp Pulse Resp BP Pulse Ox 99.6 F H 96 18 192/71 H 95 06/16/20 10:04 06/16/20 10:15 06/16/20 10:04 06/16/20 10:04 06/16/20 10:04 Oxygen Delivery Method Room Air Weight: 113 lb 5.082 oz Body Mass Index (BMI) 22.1 Finger Stick Blood Glucose 167 Intake and Output for Last 24 Hours 06/14/20 06/15/20 06/16/20 22:59 23:59 23:59 Intake Total 220 / 220 Output Total 200 / 200 Balance General: Alert, Oriented x3, Cooperative, No apparent distress HEENT: Atraumatic, PERRLA, EOMI, Normocephalic Oral: Moist Mucosa, No Gingival or Mucosal Lesions/ Ulcerations Neck: Supple, No JVD, Negative Carotid Bruits, Trachea Midline, Thyroid Normal Size and Texture Lungs: Clear to auscultation, No rhonchi, No wheeze, No rales Cardiovascular: Regular rate, Regular Rhythm, Normal S1, Normal S2, PMI Normal Abdomen: Bowel Sounds Present, Soft, Non Tender, Non-Distended, No Hepato- splenomegaly Extremities: No clubbing, No cyanosis, Edema Skin: No rashes, Ulcer/ Wound Lymphatic: No Cervical, Supraclavicular, or Inguinal Adenopathy Neurological: Cranial nerves II-XII grossly intact, Neuro grossly intact Psych/Mental Status: Normal Affect, Appropriate Microbiology Past 72 Hours 06/10/20 15:00 Blood Culture (Wb) - Left Forearm Blood Culture - Final No growth in 5 days. 06/10/20 15:00 Blood Culture (Wb) - Anticubital Right Blood Culture - Final No growth in 5 days. 06/10/20 14:00 Wound - Leg, Right Gram Stain - Final 06/10/20 14:00 Wound - Leg, Right Wound Culture - Final Pseudomonas aeroginosa Streptococcus agalactiae (B) Meth. resistant Staph. aureus 06/10/20 14:00 Wound - Leg, Right Anaerobic Culture - Final Anaerobic cocci Laboratory Results 06/15/20 16:54: POC Glucose 144 H 06/15/20 22:53: POC Glucose 151 H 06/16/20 06:00: WBC 15.4 H, RBC 3.38 L, Hgb 9.0 L, Hct 29.7 L, MCV 87.9, MCH 26.6 L, MCHC 30.3 L, RDW Std Deviation 63.3 H, RDW Coeff of Ceferino 19.7 H, Plt Count 313, MPV 10.0, Immature Gran % (Auto) 1.200 H, Neut % (Auto) 78.7 H, Lymph % (Auto) 10.9 L, Carlton % (Auto) 5.2, Eos % (Auto) 3.4, Baso % (Auto) 0.6, Absolute Neuts (auto) 12.1 H, Absolute Lymphs (auto) 1.68, Nucleated RBC % 0 06/16/20 06:00: Sodium 146 H, Potassium 4.0, Chloride 120 H, Carbon Dioxide 18.0 L, Anion Gap 8, BUN 51 H, Creatinine 1.26 H, Estim Creat Clear Calc 25.58, Est GFR (MDRD) Af Amer 53 L, Est GFR (MDRD) Non-Af 43 L, BUN/Creatinine Ratio 40.5 H , Glucose 126 H, Calcium 8.8 06/16/20 06:39: POC Glucose 128 H 06/16/20 11:43: POC Glucose 134 H Current Medications Acetaminophen (Acetaminophen 500 Mg Tablet) 1,000 mg PO Q8 [facility] Last Admin: 06/16/20 05:00 Dose: 1,000 mg Documented by: Acetaminophen (Acetaminophen 650 Mg Suppository) 650 mg RC Q6H PRN PRN PRN Reason: pain/fever Last Admin: 06/11/20 10:10 Dose: 650 mg Documented by: Amlodipine Besylate (Amlodipine 10 Mg Tablet) 10 mg PO DAILY [facility] Last Admin: 06/16/20 10:15 Dose: 10 mg Documented by: Atorvastatin Calcium (Atorvastatin Calcium 10 Mg Tablet) 10 mg PO QHS [facility] Last Admin: 06/15/20 22:42 Dose: 10 mg Documented by: Betamethasone Valerate (Betamethasone Valerate 1 Tube) 1 applic TOPICAL DAILY [facility] Last Admin: 06/16/20 10:21 Dose: 1 applicatio Documented by: Budesonide (Budesonide Respules 0.5 Mg/2 Ml Ampul.Neb.) 0.5 mg INHALATION Q12H.RT [facility] Last Admin: 06/16/20 07:28 Dose: 0.5 mg Documented by: Calamine/Phenol (Menthol/Lanolin/Calamine/Znox 113 Gm Tube) 1 applic TOPICAL TID [facility]; Protocol Last Admin: 06/16/20 05:14 Dose: 1 applicatio Documented by: Calcium Carbonate (Calcium (Elemental) 500 Mg Tablet) [facility] Last Admin: 06/16/20 08:18 Dose: 500 mg Documented by: Cholecalciferol (Cholecalciferol (Vit D3) 1,000 Unit (25mcg)) [facility] Last Admin: 06/16/20 08:18 Dose: 1,000 unit Documented by: Clonidine (Clonidine Hcl 0.2 Mg Tablet) 0.2 mg PO BID [facility] Last Admin: 06/16/20 10:15 Dose: 0.2 mg Documented by: Hydralazine HCl (Hydralazine 50 Mg Tablet) 100 mg PO TID [facility] Last Admin: 06/16/20 05:00 Dose: 100 mg Documented by: Hydralazine HCl (Hydralazine 20 Mg/Ml Vial) 10 mg IV Q6H PRN PRN PRN Reason: BLOOD PRESSURE ELEVATION Last Admin: 06/15/20 05:18 Dose: 10 mg Documented by: Hydrochlorothiazide (Hydrochlorothiazide 25 Mg Tablet) 25 mg PO DAILY [facility] Last Admin: 06/16/20 10:15 Dose: 25 mg Documented by: Vancomycin IV Pharmacy to Dose (1 ea/ Sodium Chloride) 500 mls @ 250 mls/hr IV X1 PRN; Protocol PRN Reason: Rx to Dose Vancomycin HCl () 500 mg in 100 mls @ 100 mls/hr IV Q24H [facility] Last Infusion: 06/15/20 19:30 Dose: Infused Documented by: Piperacillin Sod/Tazobactam (Sod 3.375 gm/ Sodium Chloride) 50 mls @ 12.5 mls/hr IV Q8 [facility] Last Infusion: 06/16/20 09:08 Dose: Infused Documented by: Insulin Human Lispro (Insulin Lispro 100 Unit/Ml Insuln.Pen) 0 unit [facility]; Protocol Last Admin: 06/16/20 11:43 Dose: Not Given Documented by: Losartan Potassium (Losartan Potassium 50 Mg Tablet) 50 mg PO BID [facility] Last Admin: 06/16/20 10:15 Dose: 50 mg Documented by: Morphine Sulfate (Morphine 2 Mg/Ml Syringe) 2 mg IV Q3H PRN PRN PRN Reason: Pain Score 1-10 Ondansetron HCl (Ondansetron 4 Mg/2 Ml Vial) 4 mg IV Q8H PRN PRN PRN Reason: NAUSEA/VOMITING Pantoprazole Sodium (Pantoprazole Sodium 40 Mg Tablet) 40 mg PO DAILY [facility] Last Admin: 06/16/20 10:15 Dose: 40 mg Documented by: Phenytoin Sodium (Phenytoin Na 100 Mg/2 Ml Vial) 100 mg IV BID [facility] Last Admin: 06/16/20 10:15 Dose: 100 mg Documented by: Polyethylene Glycol (Polyethylene Glycol 3350 17 Gm Packet) 17 gm PO DAILY [facility] Last Admin: 06/16/20 10:23 Dose: Not Given Documented by: Sodium Chloride (0.9% Saline Lock 10 Ml Syringe) 10 - 40 ml IV UD PRN PRN Reason: SALINE FLUSH Last Admin: 06/15/20 09:46 Dose: 20 ml Documented by: Sucralfate (Sucralfate 1 Gm Tablet) 1 gm PO TIDAC [facility] Last Admin: 06/16/20 11:44 Dose: 1 gm Documented by: Discharge Activity: Return to Normal Activity Weight Bearing Status: Weight bearing as tolerated Call your doctor if you observe: Fever of 101 or Higher, Shortness of breath, Dizziness, Fainting spells, Chest pain, Increased palpitations (irregular heartbeat), Uncontrolled pain Home Medications: Medications to take at Discharge Amlodipine [Norvasc] 1 tab PO DAILY 09/26/16 Fluticasone Propionate [Flovent Hfa] 1 puff IH BID 09/26/16 Losartan Potassium 1 tab PO BID 09/26/16 Simvastatin [Zocor] 1 tab PO QHS 09/26/16 Calcium (Elemental) [Os-Denny 500] 500 mg PO BID 01/03/17 Cholecalciferol (VIT D3) [Vitamin D3] 1,000 unit PO DAILY 01/03/17 Clonidine HCl [Catapres] 0.2 mg PO BID 01/03/17 Clopidogrel Bisulfate [Plavix] 75 mg PO DAILY 01/03/17 hydrALAZINE [Apresoline] 100 mg PO TID 01/03/17 Phenytoin Na [Dilantin] 200 mg PO DAILY #30 10/04/17 Acetaminophen [Tylenol] 1,000 mg PO Q8 06/10/20 Hydrochlorothiazide [Hctz] 25 mg PO DAILY 06/10/20 Iron Polysaccharide Complex [Ferrex 150] 150 mg PO BIDCM 06/10/20 Mometasone Furoate 1 applic TP DAILY 06/10/20 Pantoprazole Sodium [Protonix] 20 mg PO DAILY 06/10/20 Polyethylene Glycol 3350 [Miralax] 17 gm PO DAILY 06/10/20 Sucralfate [Carafate] 1 gm PO TID 06/10/20 Doxycycline 100 mg PO BID #10 cap 06/16/20 Levofloxacin [Levaquin] 750 mg PO QODAY #3 tab 06/16/20 Following Prescriptions Were Given to Patient: Doxycycline 100 mg PO BID #10 cap Transmission Status: Received by [id number] Levofloxacin [Levaquin] 750 mg PO QODAY #3 tab Transmission Status: Received by [id number] Primary Care Physician: Leonardo Bear III, MD [Primary Care Provider] - Please follow up with your Primary Care Physician in: 1 WEEK. Please Follow Up With: Joann Cook NP-C Please Follow Up With: Leonardo Bear III, MD When: 1 WK Disposition: Home with Home Health Minutes spent on discharge:: 32 Patient Condition:: Stable Medical Necessity - Tobacco Use Smoking Status: Never smoker Meaningful Use Info Meaningful Use Diagnoses (Choose all that apply): None applicable Inpatient E&M: 52414 Disch Hosp
--- NOTE | 2020-06-17 15:16 | CASEMGMT ---
RN CM Discharge Follow-up Phone Call: CHALINOAndree: Bo Strata: 3 Call Date: 06/17/20 Discharge Date: 06/16/20 Time of Call: 1510 Duration: 5 min Admitting Diagnosis: Cellulitis lower extremities RN CM completed follow-up phone call after recent hospitalization. answered and states patient is doing better. [facility] is currently seeing patient in the home. had no questions or concerns regarding discharge instructions. was able to fill prescriptions without any issues. aware of follow-up appt with PCP. had no further questions at this time.
== END 2020-06-16 13:30 | disposition home health service (06) | DRG 603 ==
LOC: ED 10:01 → MS3 12:13
PROVIDERS: Anesthesiology; Surgery; Admitting Provider Student in an Organized Health Care Education/Training Program; Emergency Provider Emergency Medicine; PCP Family Medicine; Visit Provider Hospitalist
PROC: 0DJ08ZZ Inspection of Upper Intestinal Tract, Via Natural or Artificial Opening Endoscopic (ICD-10-PCS; CPT 43235; principal; 2020-06-11 12:55)
DX: L03.116 Cellulitis of left lower limb (principal); E87.2 Acidosis; N17.9 Acute kidney failure, unspecified; E87.0 Hyperosmolality and hypernatremia; L97.919 Non-pressure chronic ulcer of unspecified part of right lower leg with unspecified severity; L97.929 Non-pressure chronic ulcer of unspecified part of left lower leg with unspecified severity; L03.115 Cellulitis of right lower limb; E78.5 Hyperlipidemia, unspecified; K21.9 Gastro-esophageal reflux disease without esophagitis; D50.9 Iron deficiency anemia, unspecified; I12.9 Hypertensive chronic kidney disease with stage 1 through stage 4 chronic kidney disease, or unspecified chronic kidney disease; E11.22 Type 2 diabetes mellitus with diabetic chronic kidney disease; N18.30 Chronic kidney disease, stage 3 unspecified; Z66 Do not resuscitate; G40.909 Epilepsy, unspecified, not intractable, without status epilepticus; B96.5 Pseudomonas (aeruginosa) (mallei) (pseudomallei) as the cause of diseases classified elsewhere; Z79.4 Long term (current) use of insulin; M81.0 Age-related osteoporosis without current pathological fracture; M85.869 Other specified disorders of bone density and structure, unspecified lower leg; Z79.02 Long term (current) use of antithrombotics/antiplatelets; Z79.51 Long term (current) use of inhaled steroids; Z98.1 Arthrodesis status; Z82.49 Family history of ischemic heart disease and other diseases of the circulatory system; Z83.3 Family history of diabetes mellitus; Z82.3 Family history of stroke; Z96.653 Presence of artificial knee joint, bilateral; B95.4 Other streptococcus as the cause of diseases classified elsewhere; E88.09 Other disorders of plasma-protein metabolism, not elsewhere classified; J45.909 Unspecified asthma, uncomplicated; A49.02 Methicillin resistant Staphylococcus aureus infection, unspecified site
CPT/HCPCS: 36415; 71045; 73590; 73630; 80048; 80053; 80202; 81001; 82274; 82728; 82962; 83036; 83540; 83550; 84295; 84484; 85025; 85610; 85652; 85730; 86140; 86850; 86900; 86901; 86920; 86922; 87040; 87070; 87075; 87077; 87186; 87205; 87426; 87640; 92507; 92526; 92610; 93005; 93970; 94640; 97110; 97162; 97166; 97530; 97535; 97802; 99285; J7030; J7040; J7050; P9016; A4216; J1940; J2405; J2916